=== PATIENT | female | born 1960 | race Caucasian/White ===

== ENCOUNTER 2019-11-28 07:58 | Inpatient (IN) | payer OTHER, SELFPAY ==
[2019-11-28] VITALS (25 sets, daily range): BP systolic 120–173; BP diastolic 53–91; PULSE 68–98; RESP 15–20; TEMP 21.1–37.3; O2SAT 96–100; BMI 48.0
--- NOTE | 2019-11-28 08:22 | ECG_ITS ---
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 Measurements Intervals [place] Rate: 75 P: 52 VA: 196 QRS: -2 QRSD: 97 T: 64 QT: 382 QTc: 429 Interpretive Statements SINUS RHYTHM NONSPECIFIC T-WAVE ABNORMALITY No previous ECG available for comparison Electronically Signed On 11-28-2019 13:07:06 CDT by Avery Patel M.D. [id number]
--- NOTE | 2019-11-28 08:24 | W.ED.EXTPRO ---
Documented by User: JACK Galarza 11/28/19 11:24 HPI - Extremity Problem General: Chief complaint: Extremity Problem,Nontraumatic Stated complaint: l arm numbness/tightness Time Seen by Provider: 11/28/19 08:13 Source: patient Mode of arrival: ambulatory Limitations: no limitations History of Present Illness: HPI Narrative: Patient comes in today for complaints of discomfort with numbness and tingling to the left arm. Patient reports that it feels swollen. Patient does have a some neck problems which she was adjusted last week by her chiropractor. Patient takes no routine medications. Patient states that she thinks she might have hypoglycemia but other than that denies diabetes or hypertension. Patient appears well. Patient appears in no acute distress. 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 Physical Exam Const: COMMON NORMALS: no acute distress, patient oriented x3 and alert GENERAL APPEARANCE: cooperative HENMT: COMMON NORMALS: normocephalic, TM's normal bilaterally and Normal external nose present HEAD & SCALP: normal to inspection and normocephalic NOSE: Normal external nose present TYMPANIC MEMBRANE: TM's normal bilaterally MOUTH: Normal oral and palatal mucosa present THROAT: posterior oropharynx normal Eye: GENERAL EYE: appearance normal, both eyes and all related structures Neck/C-Spine: COMMON NORMALS: full ROM and no meningeal signs Lymph: LYMPHATIC: no lymphadenopathy noted Chest: COMMONS NORMALS: normal inspection of the chest Resp: COMMON NORMALS: normal respiratory effort EFFORT & INSPECTION: Yes able to speak in complete sentences Cardio: COMMON NORMALS: regular rate and regular rhythm RATE: regular rate RHYTHM: regular rhythm GI: COMMON NORMALS: non-tender RECTAL EXAM: normal sphincter tone and heme positive stool : COMMON NORMALS: Yes no CVA tenderness BLADDER/KIDNEY EXAM: Yes no CVA tenderness Back/Pelvis: COMMON NORMALS: no CVA tenderness and thoracic and lumbar spine normal to inspection Extremity: COMMON NORMALS: normal to inspection Neuro: COMMON NORMALS: patient oriented x3 and moves all extremities SENSORIUM/ORIENTATION: Yes alert MENINGEAL SIGNS: Yes no meningeal signs SPEECH: speech normal GAIT: Yes Normal gait present SENSORY EXAM: Yes extremities MOTOR EXAM: 5/5 motor strength present throughout Psych: COMMON NORMALS: mental status grossly normal and cooperative Skin: COMMON NORMALS: no rashes or lesions noted GENERAL SKIN EXAM: no rashes or lesions noted Course ED course: 854, lab notified that Hemoglobin is 6.1, Hematocrit is 23.8. wjw 1100. Reviewed exam with Dr. Merritt regarding patient's low red blood cell count and positive Hemoccult. Suspicious for GI bleed however CT scan was negative for anything but a large hiatal hernia and some nonspecific cyst on the kidney and liver. He recommended patient be admitted for transfusion of blood cells and further evaluation and treatment. Dr. Merritt will evaluate patient and arrange admission. Vital Signs: Vital signs: Vital Signs Temperature 98.1 F 11/29/19 13:06 Pulse Rate 70 11/29/19 13:06 Respiratory Rate 18 11/29/19 13:06 Blood Pressure 145/78 11/29/19 13:06 Pulse Oximetry 100 11/29/19 13:06 MDM - Extremity (Nontraumatic) MDM Narrative: Medical decision making narrative: Patient came in today for some complaints of numbness to the left extremity. Patient appeared well. Patient was gone with minimal discomfort. However raising arm above the head did seem to aggravate the numbness. Exam noted abdomen soft nontender, respirations even lungs are clear to auscultation. Movement of the arm range of motion was normal. Tenderness was noted in the neck. Vital signs were normal. Differential diagnosis include but not limited to facet arthropathy, anemia, ACS. Laboratory values were significant for anemia at 6.1 hemoglobin. Patient had a positive Hemoccult with black stool. CT scan was positive for large hiatal hernia, and a incidental cyst or nodule to the liver and multiple cyst on the kidneys. Reviewed exam with Dr. Merritt who recommended patient be admitted for further evaluation of GI bleed and anemia. Reviewed this with patient who agreed to plan. Lab Data: Labs: Lab Results 11/28/19 11/28/19 11/28/19 Range/Units 08:30 08:30 08:30 WBC 6.2 (4.0-10.0) 10^3/ uL RBC 3.02 L (4.1-5.3) 10^6/u L Hgb 6.1 L* (11.5-15.3) g/dL Hct 23.8 L (37.0-47.0) % MCV 78.8 L (81-99) fL MCH 20.2 L (28.0-34.0) pg MCHC 25.6 L (30.0-36.0) g/dL RDW 16.7 H (12.1-15.1) % Plt Count 334 (130-400) 10^3/c mm MPV 9.6 (7.4-10.4) fL Neut % (Auto) 72.1 % Lymph % (Auto) 18.7 % [place] % (Auto) 6.1 % Eos % (Auto) 1.0 % Baso % (Auto) 1.3 % Reticulocyte % (Au to) % Neut # (Auto) 4.5 (1.8-7.7) 10^3/u L Lymph # (Auto) 1.2 (0.8-4.8) 10^3/u L [place] # (Auto) 0.4 (0.2-0.9) 10^3/u L Eos # (Auto) 0.1 (0.0-0.8) 10^3/u L Baso # (Auto) 0.1 (0.0-0.1) 10^3/u L Nucleated RBC % (a uto) 0 % Nucleated RBCs # 0.0 /100WBC D-Dimer 0.29 (0-0.59) ug/mIFE U Sodium 139 (136-145) mmol/L Potassium 4.3 (3.5-5.1) mmol/L Chloride 104 (98-107) mmol/L Carbon Dioxide 26 (22-29) mmol/L Anion Gap 13.3 (5-19) BUN 16 (6-20) mg/dL Creatinine 0.7 (0.5-0.9) mg/dL GFR Calculation 85.9 L (90-130) mL/min Glucose 103 (65-115) mg/dL Calculated Osmolal ity 285 (285-295) mOsm/k g Calcium 9.0 (8.5-10.5) mg/dL Ionized Calcium Me as (1.1-1.4) mmol/L Magnesium 2.2 (1.7-2.3) mg/dL Iron (37-145) ug/dL TIBC mcg/dl % Saturation (20-50) % Unsat Iron Binding (112-347) ug/dL Total Bilirubin 0.2 (0.15-1.2) mg/dL AST 16 (0-32) U/L ALT 10 (0-33) U/L Alkaline Phosphata se 75 (35-105) IU/L Troponin T Baselin e (0-10) ng/L Total Protein 6.3 L (6.6-8.7) g/dL Albumin 4.3 (3.5-5.2) g/dL Globulin 2.0 (1.3-4.6) g/dL Vitamin B12 (232-1245) pg/mL Folate (4.8-37.3) ng/mL TSH 1.50 (0.27-4.20) uIU/ mL Blood Type Rho(D) Type Antibody Screen Crossmatch 11/28/19 11/28/19 11/28/19 Range/Units 08:30 08:30 08:30 WBC (4.0-10.0) 10^3/ uL RBC (4.1-5.3) 10^6/u L Hgb (11.5-15.3) g/dL Hct (37.0-47.0) % MCV (81-99) fL MCH (28.0-34.0) pg MCHC (30.0-36.0) g/dL RDW (12.1-15.1) % Plt Count (130-400) 10^3/c mm MPV (7.4-10.4) fL Neut % (Auto) % Lymph % (Auto) % [place] % (Auto) % Eos % (Auto) % Baso % (Auto) % Reticulocyte % (Au to) 2.7200 % Neut # (Auto) (1.8-7.7) 10^3/u L Lymph # (Auto) (0.8-4.8) 10^3/u L [place] # (Auto) (0.2-0.9) 10^3/u L Eos # (Auto) (0.0-0.8) 10^3/u L Baso # (Auto) (0.0-0.1) 10^3/u L Nucleated RBC % (a uto) % Nucleated RBCs # /100WBC D-Dimer (0-0.59) ug/mIFE U Sodium (136-145) mmol/L Potassium (3.5-5.1) mmol/L Chloride (98-107) mmol/L Carbon Dioxide (22-29) mmol/L Anion Gap (5-19) BUN (6-20) mg/dL Creatinine (0.5-0.9) mg/dL GFR Calculation (90-130) mL/min Glucose (65-115) mg/dL Calculated Osmolal ity (285-295) mOsm/k g Calcium (8.5-10.5) mg/dL Ionized Calcium Me as (1.1-1.4) mmol/L Magnesium (1.7-2.3) mg/dL Iron 12 L (37-145) ug/dL TIBC 449 mcg/dl % Saturation 2.6 L (20-50) % Unsat Iron Binding 437 H (112-347) ug/dL Total Bilirubin (0.15-1.2) mg/dL AST (0-32) U/L ALT (0-33) U/L Alkaline Phosphata se (35-105) IU/L Troponin T Baselin e 8 (0-10) ng/L Total Protein (6.6-8.7) g/dL Albumin (3.5-5.2) g/dL Globulin (1.3-4.6) g/dL Vitamin B12 (232-1245) pg/mL Folate (4.8-37.3) ng/mL TSH (0.27-4.20) uIU/ mL Blood Type Rho(D) Type Antibody Screen Crossmatch 11/28/19 11/28/19 11/28/19 Range/Units 08:30 08:30 09:40 WBC (4.0-10.0) 10^3/ uL RBC (4.1-5.3) 10^6/u L Hgb (11.5-15.3) g/dL Hct (37.0-47.0) % MCV (81-99) fL MCH (28.0-34.0) pg MCHC (30.0-36.0) g/dL RDW (12.1-15.1) % Plt Count (130-400) 10^3/c mm MPV (7.4-10.4) fL Neut % (Auto) % Lymph % (Auto) % [place] % (Auto) % Eos % (Auto) % Baso % (Auto) % Reticulocyte % (Au to) % Neut # (Auto) (1.8-7.7) 10^3/u L Lymph # (Auto) (0.8-4.8) 10^3/u L [place] # (Auto) (0.2-0.9) 10^3/u L Eos # (Auto) (0.0-0.8) 10^3/u L Baso # (Auto) (0.0-0.1) 10^3/u L Nucleated RBC % (a uto) % Nucleated RBCs # /100WBC D-Dimer (0-0.59) ug/mIFE U Sodium (136-145) mmol/L Potassium (3.5-5.1) mmol/L Chloride (98-107) mmol/L Carbon Dioxide (22-29) mmol/L Anion Gap (5-19) BUN (6-20) mg/dL Creatinine (0.5-0.9) mg/dL GFR Calculation (90-130) mL/min Glucose (65-115) mg/dL Calculated Osmolal ity (285-295) mOsm/k g Calcium (8.5-10.5) mg/dL Ionized Calcium Me as 1.1 (1.1-1.4) mmol/L Magnesium (1.7-2.3) mg/dL Iron (37-145) ug/dL TIBC mcg/dl % Saturation (20-50) % Unsat Iron Binding (112-347) ug/dL Total Bilirubin (0.15-1.2) mg/dL AST (0-32) U/L ALT (0-33) U/L Alkaline Phosphata se (35-105) IU/L Troponin T Baselin e (0-10) ng/L Total Protein (6.6-8.7) g/dL Albumin (3.5-5.2) g/dL Globulin (1.3-4.6) g/dL Vitamin B12 324 (232-1245) pg/mL Folate 10.8 (4.8-37.3) ng/mL TSH (0.27-4.20) uIU/ mL Blood Type Rho(D) Type Antibody Screen Crossmatch 11/28/19 Range/Units 09:50 WBC (4.0-10.0) 10^3/ uL RBC (4.1-5.3) 10^6/u L Hgb (11.5-15.3) g/dL Hct (37.0-47.0) % MCV (81-99) fL MCH (28.0-34.0) pg MCHC (30.0-36.0) g/dL RDW (12.1-15.1) % Plt Count (130-400) 10^3/c mm MPV (7.4-10.4) fL Neut % (Auto) % Lymph % (Auto) % [place] % (Auto) % Eos % (Auto) % Baso % (Auto) % Reticulocyte % (Au to) % Neut # (Auto) (1.8-7.7) 10^3/u L Lymph # (Auto) (0.8-4.8) 10^3/u L [place] # (Auto) (0.2-0.9) 10^3/u L Eos # (Auto) (0.0-0.8) 10^3/u L Baso # (Auto) (0.0-0.1) 10^3/u L Nucleated RBC % (a uto) % Nucleated RBCs # /100WBC D-Dimer (0-0.59) ug/mIFE U Sodium (136-145) mmol/L Potassium (3.5-5.1) mmol/L Chloride (98-107) mmol/L Carbon Dioxide (22-29) mmol/L Anion Gap (5-19) BUN (6-20) mg/dL Creatinine (0.5-0.9) mg/dL GFR Calculation (90-130) mL/min Glucose (65-115) mg/dL Calculated Osmolal ity (285-295) mOsm/k g Calcium (8.5-10.5) mg/dL Ionized Calcium Me as (1.1-1.4) mmol/L Magnesium (1.7-2.3) mg/dL Iron (37-145) ug/dL TIBC mcg/dl % Saturation (20-50) % Unsat Iron Binding (112-347) ug/dL Total Bilirubin (0.15-1.2) mg/dL AST (0-32) U/L ALT (0-33) U/L Alkaline Phosphata se (35-105) IU/L Troponin T Baselin e (0-10) ng/L Total Protein (6.6-8.7) g/dL Albumin (3.5-5.2) g/dL Globulin (1.3-4.6) g/dL Vitamin B12 (232-1245) pg/mL Folate (4.8-37.3) ng/mL TSH (0.27-4.20) uIU/ mL Blood Type A Positive Rho(D) Type Positive Antibody Screen Negative Crossmatch See Detail EKG Data^: EKG 1: Attestation: I personally reviewed and interpreted this EKG as follows: (0835, sinus rhythm, no ectopy, no ST elevation, rate 75 bpm regular.) Discharge Plan Discharge Admit Provider: Glenda Crandall Clinical Impression: GI (gastrointestinal bleed) Condition: Stable Discharge Orders: Discharge Order (Routine); Ordered 11/29/19 Ordered By: Cleve Neely Discharge Diet: Regular Discharge Activity: Resume usual activity Discharge Date/Time: 11/28/19 19:08 Coding Level of Care Code ED Rn Research for Chg Fwd Exam Comprehensive Documented by User: Fabrice Merritt DO 12/01/19 06:34 HPI - Extremity Problem General: Chief complaint: Extremity Problem,Nontraumatic Stated complaint: l arm numbness/tightness Time Seen by Provider: 11/28/19 08:13 [facility] ED PFSH: Medical History (Updated 11/30/19 @ 00:00 by ) Back pain Family History (Updated 11/28/19 @ 15:17 by Cleve Neely MD) Other Cancer Social History (Updated 11/28/19 @ 15:17 by Cleve Neely MD) Smoking and tobacco status: never smoked Alcohol intake: never Substance/Drug Use: never Lives independently: No Household members: spouse Housing: House Current occupational status: employed Current occupation: Works at a [employer] Vital Signs: Vital signs: Vital Signs Temperature 98.1 F 11/29/19 13:06 Pulse Rate 70 11/29/19 13:06 Respiratory Rate 18 11/29/19 13:06 Blood Pressure 145/78 11/29/19 13:06 Pulse Oximetry 100 11/29/19 13:06 MDM - Extremity (Nontraumatic) MDM Narrative: Medical decision making narrative: Patient seen and reviewed with Adan Cary. Agree with his assessment note discussed Dr. Crandall patient will be admitted for GI bleed. Lab Data: Labs: Lab Results 11/28/19 11/28/19 11/28/19 Range/Units 08:30 08:30 08:30 WBC 6.2 (4.0-10.0) 10^3/ uL RBC 3.02 L (4.1-5.3) 10^6/u L Hgb 6.1 L* (11.5-15.3) g/dL Hct 23.8 L (37.0-47.0) % MCV 78.8 L (81-99) fL MCH 20.2 L (28.0-34.0) pg MCHC 25.6 L (30.0-36.0) g/dL RDW 16.7 H (12.1-15.1) % Plt Count 334 (130-400) 10^3/c mm MPV 9.6 (7.4-10.4) fL Neut % (Auto) 72.1 % Lymph % (Auto) 18.7 % [place] % (Auto) 6.1 % Eos % (Auto) 1.0 % Baso % (Auto) 1.3 % Reticulocyte % (Au to) % Neut # (Auto) 4.5 (1.8-7.7) 10^3/u L Lymph # (Auto) 1.2 (0.8-4.8) 10^3/u L [place] # (Auto) 0.4 (0.2-0.9) 10^3/u L Eos # (Auto) 0.1 (0.0-0.8) 10^3/u L Baso # (Auto) 0.1 (0.0-0.1) 10^3/u L Nucleated RBC % (a uto) 0 % Nucleated RBCs # 0.0 /100WBC D-Dimer 0.29 (0-0.59) ug/mIFE U Sodium 139 (136-145) mmol/L Potassium 4.3 (3.5-5.1) mmol/L Chloride 104 (98-107) mmol/L Carbon Dioxide 26 (22-29) mmol/L Anion Gap 13.3 (5-19) BUN 16 (6-20) mg/dL Creatinine 0.7 (0.5-0.9) mg/dL GFR Calculation 85.9 L (90-130) mL/min Glucose 103 (65-115) mg/dL Calculated Osmolal ity 285 (285-295) mOsm/k g Calcium 9.0 (8.5-10.5) mg/dL Ionized Calcium Me as (1.1-1.4) mmol/L Magnesium 2.2 (1.7-2.3) mg/dL Iron (37-145) ug/dL TIBC mcg/dl % Saturation (20-50) % Unsat Iron Binding (112-347) ug/dL Total Bilirubin 0.2 (0.15-1.2) mg/dL AST 16 (0-32) U/L ALT 10 (0-33) U/L Alkaline Phosphata se 75 (35-105) IU/L Troponin T Baselin e (0-10) ng/L Total Protein 6.3 L (6.6-8.7) g/dL Albumin 4.3 (3.5-5.2) g/dL Globulin 2.0 (1.3-4.6) g/dL Vitamin B12 (232-1245) pg/mL Folate (4.8-37.3) ng/mL TSH 1.50 (0.27-4.20) uIU/ mL Blood Type Rho(D) Type Antibody Screen Crossmatch 11/28/19 11/28/19 11/28/19 Range/Units 08:30 08:30 08:30 WBC (4.0-10.0) 10^3/ uL RBC (4.1-5.3) 10^6/u L Hgb (11.5-15.3) g/dL Hct (37.0-47.0) % MCV (81-99) fL MCH (28.0-34.0) pg MCHC (30.0-36.0) g/dL RDW (12.1-15.1) % Plt Count (130-400) 10^3/c mm MPV (7.4-10.4) fL Neut % (Auto) % Lymph % (Auto) % [place] % (Auto) % Eos % (Auto) % Baso % (Auto) % Reticulocyte % (Au to) 2.7200 % Neut # (Auto) (1.8-7.7) 10^3/u L Lymph # (Auto) (0.8-4.8) 10^3/u L [place] # (Auto) (0.2-0.9) 10^3/u L Eos # (Auto) (0.0-0.8) 10^3/u L Baso # (Auto) (0.0-0.1) 10^3/u L Nucleated RBC % (a uto) % Nucleated RBCs # /100WBC D-Dimer (0-0.59) ug/mIFE U Sodium (136-145) mmol/L Potassium (3.5-5.1) mmol/L Chloride (98-107) mmol/L Carbon Dioxide (22-29) mmol/L Anion Gap (5-19) BUN (6-20) mg/dL Creatinine (0.5-0.9) mg/dL GFR Calculation (90-130) mL/min Glucose (65-115) mg/dL Calculated Osmolal ity (285-295) mOsm/k g Calcium (8.5-10.5) mg/dL Ionized Calcium Me as (1.1-1.4) mmol/L Magnesium (1.7-2.3) mg/dL Iron 12 L (37-145) ug/dL TIBC 449 mcg/dl % Saturation 2.6 L (20-50) % Unsat Iron Binding 437 H (112-347) ug/dL Total Bilirubin (0.15-1.2) mg/dL AST (0-32) U/L ALT (0-33) U/L Alkaline Phosphata se (35-105) IU/L Troponin T Baselin e 8 (0-10) ng/L Total Protein (6.6-8.7) g/dL Albumin (3.5-5.2) g/dL Globulin (1.3-4.6) g/dL Vitamin B12 (232-1245) pg/mL Folate (4.8-37.3) ng/mL TSH (0.27-4.20) uIU/ mL Blood Type Rho(D) Type Antibody Screen Crossmatch 11/28/19 11/28/19 11/28/19 Range/Units 08:30 08:30 09:40 WBC (4.0-10.0) 10^3/ uL RBC (4.1-5.3) 10^6/u L Hgb (11.5-15.3) g/dL Hct (37.0-47.0) % MCV (81-99) fL MCH (28.0-34.0) pg MCHC (30.0-36.0) g/dL RDW (12.1-15.1) % Plt Count (130-400) 10^3/c mm MPV (7.4-10.4) fL Neut % (Auto) % Lymph % (Auto) % [place] % (Auto) % Eos % (Auto) % Baso % (Auto) % Reticulocyte % (Au to) % Neut # (Auto) (1.8-7.7) 10^3/u L Lymph # (Auto) (0.8-4.8) 10^3/u L [place] # (Auto) (0.2-0.9) 10^3/u L Eos # (Auto) (0.0-0.8) 10^3/u L Baso # (Auto) (0.0-0.1) 10^3/u L Nucleated RBC % (a uto) % Nucleated RBCs # /100WBC D-Dimer (0-0.59) ug/mIFE U Sodium (136-145) mmol/L Potassium (3.5-5.1) mmol/L Chloride (98-107) mmol/L Carbon Dioxide (22-29) mmol/L Anion Gap (5-19) BUN (6-20) mg/dL Creatinine (0.5-0.9) mg/dL GFR Calculation (90-130) mL/min Glucose (65-115) mg/dL Calculated Osmolal ity (285-295) mOsm/k g Calcium (8.5-10.5) mg/dL Ionized Calcium Me as 1.1 (1.1-1.4) mmol/L Magnesium (1.7-2.3) mg/dL Iron (37-145) ug/dL TIBC mcg/dl % Saturation (20-50) % Unsat Iron Binding (112-347) ug/dL Total Bilirubin (0.15-1.2) mg/dL AST (0-32) U/L ALT (0-33) U/L Alkaline Phosphata se (35-105) IU/L Troponin T Baselin e (0-10) ng/L Total Protein (6.6-8.7) g/dL Albumin (3.5-5.2) g/dL Globulin (1.3-4.6) g/dL Vitamin B12 324 (232-1245) pg/mL Folate 10.8 (4.8-37.3) ng/mL TSH (0.27-4.20) uIU/ mL Blood Type Rho(D) Type Antibody Screen Crossmatch 11/28/19 Range/Units 09:50 WBC (4.0-10.0) 10^3/ uL RBC (4.1-5.3) 10^6/u L Hgb (11.5-15.3) g/dL Hct (37.0-47.0) % MCV (81-99) fL MCH (28.0-34.0) pg MCHC (30.0-36.0) g/dL RDW (12.1-15.1) % Plt Count (130-400) 10^3/c mm MPV (7.4-10.4) fL Neut % (Auto) % Lymph % (Auto) % [place] % (Auto) % Eos % (Auto) % Baso % (Auto) % Reticulocyte % (Au to) % Neut # (Auto) (1.8-7.7) 10^3/u L Lymph # (Auto) (0.8-4.8) 10^3/u L [place] # (Auto) (0.2-0.9) 10^3/u L Eos # (Auto) (0.0-0.8) 10^3/u L Baso # (Auto) (0.0-0.1) 10^3/u L Nucleated RBC % (a uto) % Nucleated RBCs # /100WBC D-Dimer (0-0.59) ug/mIFE U Sodium (136-145) mmol/L Potassium (3.5-5.1) mmol/L Chloride (98-107) mmol/L Carbon Dioxide (22-29) mmol/L Anion Gap (5-19) BUN (6-20) mg/dL Creatinine (0.5-0.9) mg/dL GFR Calculation (90-130) mL/min Glucose (65-115) mg/dL Calculated Osmolal ity (285-295) mOsm/k g Calcium (8.5-10.5) mg/dL Ionized Calcium Me as (1.1-1.4) mmol/L Magnesium (1.7-2.3) mg/dL Iron (37-145) ug/dL TIBC mcg/dl % Saturation (20-50) % Unsat Iron Binding (112-347) ug/dL Total Bilirubin (0.15-1.2) mg/dL AST (0-32) U/L ALT (0-33) U/L Alkaline Phosphata se (35-105) IU/L Troponin T Baselin e (0-10) ng/L Total Protein (6.6-8.7) g/dL Albumin (3.5-5.2) g/dL Globulin (1.3-4.6) g/dL Vitamin B12 (232-1245) pg/mL Folate (4.8-37.3) ng/mL TSH (0.27-4.20) uIU/ mL Blood Type A Positive Rho(D) Type Positive Antibody Screen Negative Crossmatch See Detail Discharge Plan Discharge Admit Provider: Glenda Crandall Clinical Impression: GI (gastrointestinal bleed) Condition: Stable Discharge Orders: Discharge Order (Routine); Ordered 11/29/19 Ordered By: Cleve Neely Discharge Diet: Regular Discharge Activity: Resume usual activity Discharge Date/Time: 11/28/19 19:08 Coding Level of Care Code ED Rn Research for Yangg Fwd Exam Comprehensive
--- NOTE | 2019-11-28 08:34 | PC.NURSE ---
Pt woke up this morning with her right arm being numb and tingling. Pt has been having intermittent chest pressure radiating down bilateral arms for the last week. It gets worse with exertion, and better with rest.
[2019-11-28 08:47] LABS: Basophils # 0.1 10^3/uL (0.0-0.1); Basophils % 1.3 %; Eosinophils # 0.1 10^3/uL (0.0-0.8); Hematocrit 23.8 % (37.0-47.0); Lymphocytes # 1.2 10^3/uL (0.8-4.8); Lymphocytes % 18.7 %; Mean Corpuscular HGB Conc 25.6 g/dL (30.0-36.0); Mean Corpuscular Hemoglobin 20.2 pg (28.0-34.0); Mean Corpuscular Volume 78.8 fL (81-99); Mean Platelet Volume 9.6 fL (7.4-10.4); Monocytes # 0.4 10^3/uL (0.2-0.9); Monocytes % 6.1 %; Neutrophils # 4.5 10^3/uL (1.8-7.7); Neutrophils % 72.1 %; Nucleated Red Blood Cells % 0 %; Platelet Count 334 10^3/cmm (130-400); Red Blood Count 3.02 10^6/uL (4.1-5.3); Red Cell Distribution Width 16.7 % (12.1-15.1); White Blood Count 6.2 10^3/uL (4.0-10.0)
[2019-11-28 08:51] LABS: Hemoglobin 6.1 g/dL (11.5-15.3)
[2019-11-28 09:03] LABS: D Dimer 0.29 ug/mIFEU (0-0.59)
[2019-11-28 09:09] LABS: Troponin(5th) Baseline 8 ng/L (0-10)
[2019-11-28 09:14] LABS: Alanine Aminotransferase 10 U/L (0-33); Albumin Level 4.3 g/dL (3.5-5.2); Alkaline Phosphatase 75 IU/L (35-105); Anion Gap 13.3 (5-19); Aspartate Amino Transferase 16 U/L (0-32); Blood Urea Nitrogen 16 mg/dL (6-20); Carbon Dioxide 26 mmol/L (22-29); Chloride 104 mmol/L (98-107); Glomerular Filtration Rate 85.9 mL/min (90-130); Glucose 103 mg/dL (65-115); Magnesium 2.2 mg/dL (1.7-2.3); Osmolality Calculated 285 mOsm/kg (285-295); Potassium 4.3 mmol/L (3.5-5.1); Sodium 139 mmol/L (136-145); Total Bilirubin 0.2 mg/dL (0.15-1.2); Total Protein 6.3 g/dL (6.6-8.7)
--- NOTE | 2019-11-28 09:18 | CT_ITS ---
WS: [id number] CT abdomen pelvis w con* [id number] REASON FOR EXAM: gi bleed IV CONTRAST ADMINISTERED: Omnipaque 300, 95 mL TOTAL EXAM DLP: All CT scans at [facility] use at least one of these dose optimization techniques: automat ed exposure control; mA and/or kV adjustment per patient size (includes targeted exams where dose is matched to clinical indication); or iterative reconstruction. FINDINGS: A hiatal hernia is seen. Measures 8.61 cm. Along the periphery of the liver at the junction of the left and right lobes there is a hypodense mas s extends to the surface but no perforation is seen the mass is solid measures 2.32 cm. The stomach did not show any ulcerated areas. No masses are seen. The pancreas head, body, tail were normal. The spleen showed granulomas otherwise normal. Right and left adrenal glands were normal. The right and left kidneys were normal. A stone is seen in the pelvis on the right side measured 0.1 mm. The left kidney shows a small cyst measures 0.34 cm. The ureters were normal bilaterally The right colon shows fecal debris but no masses are seen the appendix is visualized and was normal. The small bowel showed no obstructive changes or masses. The transverse colon show normal appearance The descending colon show no definite masses, diverticulosis or diverticulitis. In the pelvis the uterus is small there is no adnexal masses seen. The bladder was normal. The anorectal area did not show any masses. The pelvis bony structures were normal. The lumbar spine showed normal appearance. CT/CT abdomen pelvis w con* [id number] IMPRESSION: Large hiatal hernia. A mass is seen along the junction of the left and right liver appears to be yaima id but smooth in outline. No enhancement is seen. The left kidneys shows a benign cysts The right kidney shows a calcified density in the pelvis.
[2019-11-28] MEDS: pantoprazole 40 mg SDV IVP ×2 (09:59→15:25)
[2019-11-28] MEDS: iohexol 300 mg/mL 100 mL Btl IV (10:25)
--- NOTE | 2019-11-28 14:25 | P.HP_ITS ---
Providers/Chief Complaint Chief Complaint: l arm numbness/tightness History of Present Illness Ailyn Sagastume is a 59 year old female no segment past medical history who does not follow-up with her primary care physician came in in the ER today because of numbness of left arm when she woke up. The numbness went away as the day progressed. But she was worried so she called the EMS and came to the ER. By the time she had arrived in the ER her numbness had gone away. Numbness is all associated with mild weakness but no pain. She denied of having any chest pain, nausea, vomiting, pain rating to her neck. She states she has been having back pain for last 2 weeks for which she went to chiropractor last week and got some adjustments done. She states she has been using a new pillow recently. She denies of having any dizziness, shortness of breath, fall, loss of consciousness. In the ER her blood work showed hemoglobin of 6.1 which is new. She denies of having any bleeding, easy bruising, vaginal bleed, dysuria, melena, hematemesis, hematuria, history of anemia, history of blood transfusion, any recent surgery, any history of cancer, any history of colonoscopy or endoscopy. She does give history of lung cancer in her ankles in the past. She denies of smoking or alcohol use. She does give history of using at least 2 Aleve a day for around 7 to 10 days still last week for back pain. She complains of occasional heartburn. Hospital service was requested because of anemia. Review of Systems Const: Denies: fever(s), chills, body aches, change in appetite, malaise, night sweats, diaphoresis, change in sleep pattern, daytime sleepiness or snoring Eyes: Denies: change in vision, blurry vision, photophobia, eye discomfort or eye discharge ENMT: Denies: throat pain, enlarged tonsils, hoarseness, mouth pain, oral sores, dry mouth, tinnitus, nasal congestion or post nasal drip Card: Denies: chest pain, palpitations, irregular heart rhythm, edema, swelling of feet/ankles, lightheadedness, syncope, pre-syncope, dyspnea on exertion, orthopnea, leg pain with exertion or acrocyanosis Resp: Denies: dyspnea, productive cough, non-productive cough, wheezing, stridor, pain on inspiration, change in phlegm color, hemoptysis or chest congestion GI: Denies: abdominal pain, nausea, vomiting, hematemesis, coffee ground emesis, dysphagia, heartburn, diarrhea, constipation, bloating, GI cramping, change in bowel habits, pain on defecation, hematochezia or melena : Denies: flank pain, dysuria, urinary frequency, urinary urgency, urinary hesitancy, nocturia or hematuria Musc: Denies: neck pain, back pain, extremity pain, joint pain, joint swelling, joint redness, joint stiffness or limited range of motion Neuro: Reports: numbness in extremities; Denies: headache(s), weakness in extremities, sensory changes, lack of coordination, difficulty walking, frequent falls, dizziness, vertigo, confusion, Slurred speech present, difficulty communicating thoughts or seizure-like activity Psych: Denies: anxiety, depression, mood swings, panic attacks, hopelessness or irritability Endo: Denies: polyuria, polydipsia, tired all the time, cold intolerance, excessive sweating, flushing or heat intolerance Jose J/Lymph: Denies: easy bruising or easy bleeding All/Imm: Denies: tongue swelling, facial swelling or acute wheezing Medications/Allergies Home Medications Medication Instructions Recorded Confirmed Last Taken Type No Known Home Medications 11/28/19 11/28/19 Unknown History Allergies Allergy/AdvReac Type Severity Reaction Status Date / Time No Known Allergies Allergy Verified 11/28/19 09:42 PFSH Acute PFSH: Medical History (Updated 11/28/19 @ 15:16 by Cleve Neely MD) Back pain Family History (Updated 11/28/19 @ 15:17 by Cleve Neely MD) Other Cancer Social History (Updated 11/28/19 @ 15:17 by Cleve Neely MD) Smoking and tobacco status: never smoked Alcohol intake: never Substance/Drug Use: never Lives independently: No Household members: spouse Housing: House Current occupational status: employed 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 Vitals/I&O/Wt Last Vital Signs Temp 98.3 F 11/28/19 13:08 Pulse 74 11/28/19 13:08 Resp 17 11/28/19 13:08 BP 128/68 11/28/19 13:08 Pulse Ox 100 11/28/19 13:08 11/27/19 11/28/19 11/28/19 22:59 06:59 14:59 Intake Total 0 / 0 Balance 0 / 0 Weight last 48 hrs Weight 127.006 kg Physical Exam Narrative: EXAM NARRATIVE: General: No acute distress, AO x3, morbidly obese, pale HEENT: PERRLA, pupils bilaterally equal and reactive Chest: Normal vesicular breath sounds, no added sounds, equal good air entry bilaterally CVS: S1-S2 regular, no murmurs, no tachycardia, no gallops, no rubs Abdomen: Soft, nontender, no organomegaly, bowel sounds present Neuro: No focal deficits, no facial deformity, AO x3, power 5/5 in all limbs Data : 11/28/19 08:30 11/28/19 08:30 Other Labs: CT abd/Pelvis TOTAL EXAM DLP: All CT scans at [facility] use at least one of these dose optimization techniques: automated exposure control; mA and/or kV adjustment per patient size (includes targeted exams where dose is matched to clinical indication); or iterative reconstruction. FINDINGS: A hiatal hernia is seen. Measures 8.61 cm. Along the periphery of the liver at the junction of the left and right lobes there is a hypodense mass extends to the surface but no perforation is seen the mass is solid measures 2.32 cm. The stomach did not show any ulcerated areas. No masses are seen. The pancreas head, body, tail were normal. The spleen showed granulomas otherwise normal. Right and left adrenal glands were normal. The right and left kidneys were normal. A stone is seen in the pelvis on the right side measured 0.1 mm. The left kidney shows a small cyst measures 0.34 cm. The ureters were normal bilaterally The right colon shows fecal debris but no masses are seen the appendix is visualized and was normal. The small bowel showed no obstructive changes or masses. The transverse colon show normal appearance The descending colon show no definite masses, diverticulosis or diverticulitis. In the pelvis the uterus is small there is no adnexal masses seen. The bladder was normal. The anorectal area did not show any masses. The pelvis bony structures were normal. The lumbar spine showed normal appearance. CT/CT abdomen pelvis w con* [id number] IMPRESSION: Large hiatal hernia. A mass is seen along the junction of the left and right liver appears to be solid but smooth in outline. No enhancement is seen. The left kidneys shows a benign cysts The right kidney shows a calcified density in the pelvis. A&P Assessment and plan (1) GI (gastrointestinal bleed): Status: Acute Qualifiers: GI bleed type/associated pathology: melena Qualified Code(s): K92.1 - Melena (2) Anemia: Status: Acute (3) Numbness and tingling in left arm: Status: Acute Additional A&P Information 59-year-old female with no significant past medical history presented to the hospital because of numbness in left arm found to have acute anemia so was admitted. Numbness and tingling in left arm: Patient does not have any neurological deficit right now or during the episode of numbness and tingling in the arm. Most likely musculoskeletal. Patient is given history of using new pillows at night. Will check CT head, cervical and thoracic spine. Anemia: Most likely slow GI bleed. Patient has never had a colonoscopy or endoscopy in the past. Check iron panel, vitamin B12, folic acid level, lactate level, reticulocyte count. Transfuse 2 units of PRBC. Protonix 40 mg IV every 12 hourly. As patient is not having any active GI bleed we will start patient on regular diet. Stool for occult blood. Zofran as needed. General health: Check TSH, lipid panel, HbA1c, CEA. Full code. Regular diet. SCDs for DVT prophylaxis. Attestations Medical Necessity Statement*: More than 2 midnights for acute anemia, possible GI bleed Time Spent in Patient Care: Greater than 35 minutes Coding Level of Care Code Acute Adult Manager for [facility] Diagnoses GI (gastrointestinal bleed) K92.1 GI bleed type/associated pathology: melena Anemia D64.9 Numbness and tingling in left arm R20.0; R20.2
[2019-11-28] MEDS: sodium chloride 0.9% 1,000 ML 75 ML IV (15:25)
[2019-11-28 15:29] LABS: Iron 12 ug/dL (37-145); Percent Saturation 2.6 % (20-50); Total Iron Binding Capacity 449 mcg/dl; Unsaturated Iron Binding 437 ug/dL (112-347)
--- NOTE | 2019-11-28 15:29 | CT_ITS ---
WS: [id number] CT cervical spin wo con* [id number] REASON FOR EXAM: left arm numbness IV CONTRAST ADMINISTERED: No contrast TOTAL EXAM DLP: 738.[address] scans at [facility] use at least one of these dose optimization techniques: automat ed exposure control; mA and/or kV adjustment per patient size (includes targeted exams where dose is matched to clinical indication); or iterative reconstruction. FINDINGS: The craniocervical junction anatomy was normal. C1-C2 normal anatomical findings. C2-C3: Normal vertebral alignment. Exiting foramina normal. No disc bulge or herniation. No spinal st enosis. C3-C4: Normal vertebral alignment. Exiting foramina normal. No disc bulge or herniation. No spinal st enosis. C4-C5: Normal vertebral alignment. Exiting foramina normal. No disc bulge or herniation. No spinal st enosis. C5-C6: Normal vertebral alignment. Exiting foramina normal. No disc bulge or herniation. No spinal st enosis. C6-C7: Normal vertebral alignment. Exiting foramina normal. No disc bulge or herniation. No spinal st enosis. C7-T1: Mild articular facet degenerate changes. On the right side exiting foramina normal. No spinal stenosis no disc bulge or herniation. CT/CT cervical spin wo con* [id number] IMPRESSION: C7-T1 mild articular facet degenerate changes on the right C7-T1 The remaining cervical spine appear to be normal.
--- NOTE | 2019-11-28 15:29 | CT_ITS ---
WS: [id number] CT head wo con* [id number] REASON FOR EXAM: numbness IV CONTRAST ADMINISTERED: None. TOTAL EXAM DLP: 751.[address] scans at [facility] use at least one of these dose optimization techniques: automat ed exposure control; mA and/or kV adjustment per patient size (includes targeted exams where dose is matched to clinical indication); or iterative reconstruction. FINDINGS: The parotid glands appear to be normal there is no masses seen in the parotids. The 7th and 8th nerve complexes were normal no destructive changes of the middle or inner ear. The short air cells were normal. The remaining calvarium appear to be normal. Paranasal sinuses were normal. The brain was image multiecho 3 mm sections no evidence of hemorrhage, mass effect or infarction. The ventricles were normal no paraventricular abnormalities are seen. The fractures of the brain did not show any masses or destructive changes. The mena and posterior fossa were normal. The hippocampus areas show no abnormal signal. The lateral view showed normal appearance of the ventricles. CT/CT head wo con* [id number] IMPRESSION: Normal CT of the brain.
--- NOTE | 2019-11-28 15:29 | CT_ITS ---
WS: [id number] CT thoracic spin wo con* [id number] REASON FOR EXAM: left arm numbness IV CONTRAST ADMINISTERED: None. TOTAL EXAM DLP: 1942.[address] scans at [facility] use at least one of these dose optimization techniques: automat ed exposure control; mA and/or kV adjustment per patient size (includes targeted exams where dose is matched to clinical indication); or iterative reconstruction. FINDINGS: At the C6-7 level on the right side not well seen on the CT of the cervical spine there erickson eared to be a deformity suggesting a fracture through the neural arch are on the right. The left side was normal. C7-T1 show normal appearance no fractures are noted. The remaining thoracic spine was evaluated from T1 through T12. There is no fractures seen in the preston tebral bodies. Exiting foramina is appear to be normal. There was no disc bulge or herniation. No spi nal stenosis. CT/CT thoracic spin wo con* [id number] IMPRESSION: Along the neural arch area on the right side at C6-7 there appears to be a line ar fracture through the neural arch with degenerate changes along the articular facets at that location. This was not well seen along the CT of the cervical s pine.
[2019-11-28 15:39] LABS: Folate Level 10.8 ng/mL (4.8-37.3)
[2019-11-28 15:40] LABS: Vitamin B12 324 pg/mL (232-1245)
--- NOTE | 2019-11-28 17:04 | P.CONIM_ITS ---
Providers/Reason For Consult Consulting Physican/Specialty*: Bubba Avila MD Reason for Consult*: Anemia Requesting Physcian: Dr. Merritt Attending Physician: Cleve Neely MD History of Present Illness History of Present Illness Chief Complaint: My left arm numbness History of present illness: Ailyn Sagastume is a pleasant 59 year old female, presents to the emergency department with worsening numbness of the left upper extremity that has been under work-up per ED and hospitalist service, patient was found to have incidental finding of low hemoglobin around 6 g and was tested for occult positive stool, the patient denies any hematemesis or hematochezia or any other potential bleeding per orifices, patient undergone a CT scan of the abdomen and pelvis that showed: FINDINGS: A hiatal hernia is seen. Measures 8.61 cm. Along the periphery of the liver at the junction of the left and right lobes there is a hypodense mass extends to the surface but no perforation is seen the mass is solid measures 2.32 cm. The stomach did not show any ulcerated areas. No masses are seen. The pancreas head, body, tail were normal. The spleen showed granulomas otherwise normal. Right and left adrenal glands were normal. The right and left kidneys were normal. A stone is seen in the pelvis on the right side measured 0.1 mm. The left kidney shows a small cyst measures 0.34 cm. The ureters were normal bilaterally The right colon shows fecal debris but no masses are seen the appendix is visualized and was normal. The small bowel showed no obstructive changes or masses. The transverse colon show normal appearance The descending colon show no definite masses, diverticulosis or diverticulitis. In the pelvis the uterus is small there is no adnexal masses seen. The bladder was normal. The anorectal area did not show any masses. The pelvis bony structures were normal. The lumbar spine showed normal appearance. CT/CT abdomen pelvis w con* [id number] IMPRESSION: Large hiatal hernia. A mass is seen along the junction of the left and right liver appears to be solid but smooth in outline. No enhancement is seen. The left kidneys shows a benign cysts The right kidney shows a calcified density in the pelvis. General surgery was consulted for potential evaluation to undergo potential endoscopies Review of Systems General: Reports: 10 or more systems reviewed and unremarkable except in HPI and below Meds/Allergies Home Medications and Allergies Home Medications Medication Instructions Recorded Confirmed Last Taken Type No Known Home Medications 11/28/19 11/28/19 Unknown History Allergies Allergy/AdvReac Type Severity Reaction Status Date / Time No Known Allergies Allergy Verified 11/28/19 17:22 Current Medications Current Medications Generic Name Dose Route Start Last Admin Trade Name Muq PRN Reason Stop Dose Admin Sodium Chloride 1,000 mls @ 75 mls/hr 11/28/19 15:02 11/28/19 15:25 Sodium Chloride 0.9% IV 75 mls/hr .[id number] CHAGO Administration Pantoprazole Sodium 40 mg 11/28/19 15:02 11/28/19 15:25 Protonix IVP 40 mg Q12H CHAGO Administration PFSH Acute PFSH: Medical History (Updated 11/28/19 @ 15:16 by Cleve Neely MD) Back pain Family History (Updated 11/28/19 @ 15:17 by Cleve Neely MD) Other Cancer Social History (Updated 11/28/19 @ 15:17 by Cleve Neely MD) Smoking and tobacco status: never smoked Alcohol intake: never Substance/Drug Use: never Lives independently: No Household members: spouse Housing: House Current occupational status: employed 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 Vitals/I&O/Wt Last Vital Signs Temp 99.1 F 11/28/19 16:40 Pulse 73 11/28/19 16:40 Resp 20 H 11/28/19 16:40 BP 144/74 11/28/19 16:40 Pulse Ox 100 11/28/19 16:40 11/28/19 11/28/19 11/28/19 06:59 14:59 22:59 Intake Total 0 / 0 350 / 350 Balance 0 / 0 350 / 350 Weight last 48 hrs Weight 280 lb Physical Exam Narrative: EXAM NARRATIVE: Patient is conscious alert oriented X3 BMI 48 Head and neck examination PERRLA no masses no cervical lymphadenopathy no jaundice Cardiac examination audible S1-S2 no murmurs no gallops no arrhythmias Chest is clear bilateral,abscence of Rhonchi or wheezes,no surgical emphysema Abdomen nontender nondistended soft no organomegaly guarding or rigidity/no signs of peritonitis Morbidly obese Extremities no cyanosis no clubbing no edema A&P Assessment and plan (1) Anemia: Plan of care; After thorough history and physical examination and reviewing the chart and images with my personal interpretation, plan to perform a diagnostic esophagogastroduodenoscopy and diagnostic colonoscopy with possible biopsy and possible polypectomy, in the GI lab in an outpatient setting. I do not see an acute indication to perform these procedures while the patient is having symptomatic left upper extremity weakness and numbness as I do believe that has to be sorted out first before any invasive procedures to be done. At this point will defer to hospitalist service for appropriate blood transfusion Will have the patient follow-up as an outpatient for EGD and colonoscopy unless something acutely changes over during her hospitalization Will Continue coordinating with Dr. Camacho Thank you for consulting general surgery to participate taking care . Status: Acute Coding Level of Care Code Acute Grounds/Maintenance Specialist for [facility] Fwd Diagnoses Anemia D64.9
[2019-11-28] MEDS: ALPRAZolam 0.25 mg Tablet PO (20:30)
[2019-11-28] MEDS: amlodipine 5 mg Tablet PO (20:30)
[2019-11-28 20:35] LABS: Bacteria Urine 1+; Bilirubin Urine Neg (NEGATIVE); Blood Urine Neg (Negative); Glucose Urine UA Norm (Normal); Ketones Urine Negative (Negative); Leukocyte Esterase Urine Negative (Negative); Mucus Urine 1+; Nitrate Urine Negative (Negative); Protein Urine Neg (Negative); Specific Gravity, Urine 1.015 (1.005-1.030); Squamous Epithelial Cell Urine 0-4 (0-5); Urine Appearance Clear (CLEAR); Urine Color Yellow (Yellow); Urobilinogen Urine Neg (Negative); WBC Urine 0-4 /hpf (0-5); pH Urine 5 (5-7)
[2019-11-28 20:36] LABS: Add Urine Culture? No
[2019-11-28 21:49] LABS: Ionized Calcium 1.1 mmol/L (1.1-1.4)
[2019-11-28 22:36] LABS: Thyroid Stimulating Hormone 1.69 uIU/mL (0.27-4.20)
[2019-11-29 04:00] VITALS: BP 126/75; PULSE 75; RESP 19; TEMP 36.8; O2SAT 96
[2019-11-29] MEDS: sodium chloride 0.9% 1,000 ML 75 ML IV (04:20)
[2019-11-29 05:10] LABS: Basophils # 0.1 10^3/uL (0.0-0.1); Basophils % 1.1 %; Eosinophils # 0.1 10^3/uL (0.0-0.8); Hematocrit 28.6 % (37.0-47.0); Hemoglobin 7.9 g/dL (11.5-15.3); Lymphocytes # 1.1 10^3/uL (0.8-4.8); Lymphocytes % 18.3 %; Mean Corpuscular HGB Conc 27.6 g/dL (30.0-36.0); Mean Corpuscular Hemoglobin 22.4 pg (28.0-34.0); Mean Corpuscular Volume 81.3 fL (81-99); Mean Platelet Volume 9.4 fL (7.4-10.4); Monocytes # 0.5 10^3/uL (0.2-0.9); Monocytes % 8.3 %; Neutrophils # 4.3 10^3/uL (1.8-7.7); Nucleated Red Blood Cells % 0 %; Platelet Count 272 10^3/cmm (130-400); Red Blood Count 3.52 10^6/uL (4.1-5.3); Red Cell Distribution Width 16.9 % (12.1-15.1); White Blood Count 6.1 10^3/uL (4.0-10.0)
[2019-11-29 05:28] LABS: Alanine Aminotransferase 8 U/L (0-33); Albumin Level 3.6 g/dL (3.5-5.2); Alkaline Phosphatase 68 IU/L (35-105); Aspartate Amino Transferase 12 U/L (0-32); Blood Urea Nitrogen 12 mg/dL (6-20); Calcium 8.7 mg/dL (8.5-10.5); Carbon Dioxide 26 mmol/L (22-29); Chloride 108 mmol/L (98-107); Globulin 2.2 g/dL (1.3-4.6); Glomerular Filtration Rate 85.9 mL/min (90-130); Glucose 96 mg/dL (65-115); Osmolality Calculated 290 mOsm/kg (285-295); Sodium 142 mmol/L (136-145); Total Bilirubin 0.4 mg/dL (0.15-1.2); Total Protein 5.8 g/dL (6.6-8.7)
[2019-11-29 05:30] LABS: Chol HDL Ratio 5.41 mg/dL (0.0-4.40); Cholesterol 173 mg/dL (0-200); HDL Cholesterol 32 mg/dL (60-100); LDL Cholesterol Calculated 119 mg/dL (50-129); Triglycerides 110 mg/dL (0-150); VLDL Cholestrol Calculation 22 mg/dL (0-30)
[2019-11-29 05:56] LABS: Estmated Average Glucose 100; Hemoglobin A1C 5.1 % (4.0-6.0)
[2019-11-29 07:47] VITALS: BP 145/78; PULSE 70; RESP 18; TEMP 36.7; O2SAT 100
[2019-11-29] MEDS: pantoprazole 40 mg SDV IVP (09:30)
[2019-11-29] MEDS: iron sucrose 200 MG in sodium chloride 0.9% (100 ml) 100 ML 220 MG IV (09:48)
--- NOTE | 2019-11-29 11:03 | PC.CHAP ---
Pastoral Care Encounter/Spiritual Assessment Type of Contact [] Declined cardboard cutter visit [] Patient/Family/Request visit [] Outpatient visit [] Follow-up visit [] Physician referral [] Code/Alert [X] Routine visit [] Staff referral [] Actively dying [] Patient sleeping [] Family support [] [] Out of room [] Palliative care [] [] Receiving care in room [] Pre-surgical visit [] Trauma [] Long length of stay [] ICU visit [] Other: Relational/Emotional Strength [X] Patient feels connected with others/family/visitors/staff [] Distress [] Loneliness/isolation [] Abandonment Spirituality of Patient [X] Person of Tamica [] Attends Yazidi of their [place] [X] Believes in Prayer [] Reads Bible or Uatsdin materials [] There are Spiritual issues to be addressed Carpet Weaver Interventions [X] Prayer [X] Active listening [X] Non-anxious presence [] Spiritual/emotional support [] Crisis/trauma care [] Spiritual counseling [] Bereavement support [] Provided bereavement packet [] Provided Bible/devotional materials [] Provided toy/stuffed animal, coloring book to patient or family member [] Provided Communion [] Anointing/Ethel [] Salvation [] Completed spiritual assessment [X] Other: see notes below Impact on Illness or Injury [] Angry [] Fearful [] Anxious [] Often cries [] Exhaustion [] Unable to work [] Unable to attend mosque [] Unable to walk/stand [] Unable to read [] Unable to drive [] Unable to eat/drink [] Unable to sleep [] Unable to be with family [] Patient intubated [X] Other: Summary: Concern of a stroke brought her to medical care. Medical issue is not stroke, but [facility] team found another issue, incidentally, for which the patient is thankful. She has family support. I provided advocacy: (beeper going off; needed ice, toothpaste, and toothbrush). Time spent with patient 15 mins
--- NOTE | 2019-11-29 11:04 | P.DS_ITS ---
Discharge Providers Date of Admission: 11/28/19 15:01 Date of Discharge: November 29, 2019 Attending Provider at Admission: Glenda Crandall MD Attending Provider at Discharge: Cleve Neely MD Consults: Surgery: Dr. Avila Diagnoses at Discharge Discharge Diagnosis (1) Anemia: Status: Acute Reason for Visit Reason for Visit: l arm numbness/tightness Hospital Course Discharge Summary: Ailyn Sagastume is a 59 year old female no segment past medi kari history who does not follow-up with her primary care physician came in in the ER today because of numbness of left arm when she woke up. The numbness went away as the day progressed. But she was worried so she called the EMS and came to the ER. By the time she had arrived in the ER her numbness had gone away. Numbness is all associated with mild weakness but no pain. She denied of having any chest pain, nausea, vomiting, pain rating to her neck. She states she has been having back pain for last 2 weeks for which she went to chiropractor last week and got some adjustments done. She states she has been using a new pillow recently. She denies of having any dizziness, shortness of breath, fall, loss of consciousness. In the ER her blood work showed hemoglobin of 6.1 which is new. She denies of having any bleeding, easy bruising, vaginal bleed, dysuria, melena, hematemesis, hematuria, history of anemia, history of blood transfusion, any recent surgery, any history of cancer, any history of colonoscopy or endoscopy. She does give history of lung cancer in her ankles in the past. She denies of smoking or alcohol use. She does give history of using at least 2 Aleve a day for around 7 to 10 days still last week for back pain. She complains of occasional heartburn. Stool for occult blood was tested and was negative. She was transfused 1 unit of PRBC and her hemoglobin came up appropriately to 7.9. During hospitalization lipid panel, HbA1c, TSH were checked and were all within normal limits. Her iron panel showed severe iron deficiency anemia for which she has been started on oral iron supplementation. During hospitalization her blood pressures were found to be in a higher side so she is been started on amlodipine 5 mg. Patient is advised to follow-up with her primary care provider regularly at least once every 6 months. Patient is also advised to follow-up with surgery for possible EGD and colonoscopy as she has never had any. Physical Exam Narrative: EXAM NARRATIVE: General: No acute distress, AO x3, morbidly obese, pale HEENT: PERRLA, pupils bilaterally equal and reactive Chest: Normal vesicular breath sounds, no added sounds, equal good air entry bilaterally CVS: S1-S2 regular, no murmurs, no tachycardia, no gallops, no rubs Abdomen: Soft, nontender, no organomegaly, bowel sounds present Neuro: No focal deficits, no facial deformity, AO x3, power 5/5 in all limbs Discharge Data Data Completed and Pending: Completed Studies During Hospitalization Category Date Time Status CT abdomen pelvis w con* [id number] Urge nt Cat Scan 11/28/19 09:[address] cervical spin wo con* [id number] Rout ine Cat Scan 11/28/19 15:[address] head wo con* 7 0450 Routine Cat Scan 11/28/19 15:[address] thoracic spin wo con* [id number] Rout ine Cat Scan 11/28/19 15:29 Completed Labs from last 24 hours 11/29/19 11/29/19 11/29/19 04:52 04:52 04:52 WBC RBC Hgb Hct MCV MCH MCHC RDW Plt Count MPV Neut % (Auto) Lymph % (Auto) Guthrie % (Auto) Eos % (Auto) Baso % (Auto) Reticulocyte % (Au to) Neut # (Auto) Lymph # (Auto) Guthrie # (Auto) Eos # (Auto) Baso # (Auto) Nucleated RBC % (a uto) Nucleated RBCs # Sodium 142 Potassium 4.0 Chloride 108 H Carbon Dioxide 26 Anion Gap 12.0 BUN 12 Creatinine 0.7 GFR Calculation 85.9 L Glucose 96 Estimat Average Gl ucose 100 Hemoglobin A1c 5.1 Calculated Osmolal ity 290 Lactic Acid Calcium 8.7 Ionized Calcium Me as Iron TIBC % Saturation Unsat Iron Binding Total Bilirubin 0.4 AST 12 ALT 8 Alkaline Phosphata se 68 Total Protein 5.8 L Albumin 3.6 Globulin 2.2 Triglycerides 110 Cholesterol 173 LDL Cholesterol, C alc 119 Total VLDL Cholest davi 22 HDL Cholesterol 32 L Cholesterol/HDL Ra gaby 5.41 H Vitamin B12 Folate TSH Urine Color Urine Appearance Urine pH Ur Specific Gravit y Urine Protein Urine Glucose (UA) Urine Ketones Urine Blood Urine Nitrate Urine Bilirubin Urine Urobilinogen Ur Leukocyte Yudi ase Urine RBC Urine WBC Ur Squamous Epith Cells Urine Bacteria Urine Mucus Blood Type Rho(D) Type Antibody Screen Crossmatch 11/29/19 11/28/19 11/28/19 04:52 21:38 21:38 WBC 6.1 RBC 3.52 L Hgb 7.9 L Hct 28.6 L MCV 81.3 MCH 22.4 L D MCHC 27.6 L D RDW 16.9 H Plt Count 272 MPV 9.4 Neut % (Auto) 70.0 Lymph % (Auto) 18.3 Guthrie % (Auto) 8.3 Eos % (Auto) 2.0 Baso % (Auto) 1.1 Reticulocyte % (Au to) Neut # (Auto) 4.3 Lymph # (Auto) 1.1 Guthrie # (Auto) 0.5 Eos # (Auto) 0.1 Baso # (Auto) 0.1 Nucleated RBC % (a uto) 0 Nucleated RBCs # 0.0 Sodium Potassium Chloride Carbon Dioxide Anion Gap BUN Creatinine GFR Calculation Glucose Estimat Average Gl ucose Hemoglobin A1c Calculated Osmolal ity Lactic Acid 1.0 Calcium Ionized Calcium Me as Iron TIBC % Saturation Unsat Iron Binding Total Bilirubin AST ALT Alkaline Phosphata se Total Protein Albumin Globulin Triglycerides Cholesterol LDL Cholesterol, C alc Total VLDL Cholest davi HDL Cholesterol Cholesterol/HDL Ra gaby Vitamin B12 Folate TSH 1.69 Urine Color Urine Appearance Urine pH Ur Specific Gravit y Urine Protein Urine Glucose (UA) Urine Ketones Urine Blood Urine Nitrate Urine Bilirubin Urine Urobilinogen Ur Leukocyte Yudi ase Urine RBC Urine WBC Ur Squamous Epith Cells Urine Bacteria Urine Mucus Blood Type Rho(D) Type Antibody Screen Crossmatch 11/28/19 11/28/19 11/28/19 19:20 09:50 09:40 WBC RBC Hgb Hct MCV MCH MCHC RDW Plt Count MPV Neut % (Auto) Lymph % (Auto) Guthrie % (Auto) Eos % (Auto) Baso % (Auto) Reticulocyte % (Au to) Neut # (Auto) Lymph # (Auto) Guthrie # (Auto) Eos # (Auto) Baso # (Auto) Nucleated RBC % (a uto) Nucleated RBCs # Sodium Potassium Chloride Carbon Dioxide Anion Gap BUN Creatinine GFR Calculation Glucose Estimat Average Gl ucose Hemoglobin A1c Calculated Osmolal ity Lactic Acid Calcium Ionized Calcium Me as 1.1 Iron TIBC % Saturation Unsat Iron Binding Total Bilirubin AST ALT Alkaline Phosphata se Total Protein Albumin Globulin Triglycerides Cholesterol LDL Cholesterol, C alc Total VLDL Cholest davi HDL Cholesterol Cholesterol/HDL Ra gaby Vitamin B12 Folate TSH Urine Color Yellow Urine Appearance Clear Urine pH 5 Ur Specific Gravit y 1.015 Urine Protein Neg Urine Glucose (UA) Norm Urine Ketones Negative Urine Blood Neg Urine Nitrate Negative Urine Bilirubin Neg Urine Urobilinogen Neg Ur Leukocyte Yudi ase Negative Urine RBC None Urine WBC 0-4 H Ur Squamous Epith Cells 0-4 H Urine Bacteria 1+ H Urine Mucus 1+ Blood Type A Positive Rho(D) Type Positive Antibody Screen Negative Crossmatch See Detail 11/28/19 11/28/19 11/28/19 08:30 08:30 08:30 WBC RBC Hgb Hct MCV MCH MCHC RDW Plt Count MPV Neut % (Auto) Lymph % (Auto) Guthrie % (Auto) Eos % (Auto) Baso % (Auto) Reticulocyte % (Au to) 2.7200 Neut # (Auto) Lymph # (Auto) Guthrie # (Auto) Eos # (Auto) Baso # (Auto) Nucleated RBC % (a uto) Nucleated RBCs # Sodium Potassium Chloride Carbon Dioxide Anion Gap BUN Creatinine GFR Calculation Glucose Estimat Average Gl ucose Hemoglobin A1c Calculated Osmolal ity Lactic Acid Calcium Ionized Calcium Me as Iron TIBC % Saturation Unsat Iron Binding Total Bilirubin AST ALT Alkaline Phosphata se Total Protein Albumin Globulin Triglycerides Cholesterol LDL Cholesterol, C alc Total VLDL Cholest davi HDL Cholesterol Cholesterol/HDL Ra gaby Vitamin B12 324 Folate 10.8 TSH Urine Color Urine Appearance Urine pH Ur Specific Gravit y Urine Protein Urine Glucose (UA) Urine Ketones Urine Blood Urine Nitrate Urine Bilirubin Urine Urobilinogen Ur Leukocyte Yudi ase Urine RBC Urine WBC Ur Squamous Epith Cells Urine Bacteria Urine Mucus Blood Type Rho(D) Type Antibody Screen Crossmatch 11/28/19 08:30 WBC RBC Hgb Hct MCV MCH MCHC RDW Plt Count MPV Neut % (Auto) Lymph % (Auto) Guthrie % (Auto) Eos % (Auto) Baso % (Auto) Reticulocyte % (Au to) Neut # (Auto) Lymph # (Auto) Guthrie # (Auto) Eos # (Auto) Baso # (Auto) Nucleated RBC % (a uto) Nucleated RBCs # Sodium Potassium Chloride Carbon Dioxide Anion Gap BUN Creatinine GFR Calculation Glucose Estimat Average Gl ucose Hemoglobin A1c Calculated Osmolal ity Lactic Acid Calcium Ionized Calcium Me as Iron 12 L TIBC 449 % Saturation 2.6 L Unsat Iron Binding 437 H Total Bilirubin AST ALT Alkaline Phosphata se Total Protein Albumin Globulin Triglycerides Cholesterol LDL Cholesterol, C alc Total VLDL Cholest davi HDL Cholesterol Cholesterol/HDL Ra gaby Vitamin B12 Folate TSH Urine Color Urine Appearance Urine pH Ur Specific Gravit y Urine Protein Urine Glucose (UA) Urine Ketones Urine Blood Urine Nitrate Urine Bilirubin Urine Urobilinogen Ur Leukocyte Yudi ase Urine RBC Urine WBC Ur Squamous Epith Cells Urine Bacteria Urine Mucus Blood Type Rho(D) Type Antibody Screen Crossmatch Vitals: Last Vital Signs Temp 98.1 F 11/29/19 07:47 Pulse 70 11/29/19 07:47 Resp 18 11/29/19 07:47 BP 145/78 11/29/19 07:47 Pulse Ox 100 11/29/19 07:47 Discharge Plan Discharge Patient Disposition: Home, Self-Care Condition: Stable Prescriptions: New ferrous gluconate 324 mg (37.5 mg iron) tablet 324 mg PO BID Qty: 60 RF: 0 multivitamin Tablet 1 tab PO DAILY Qty: 30 RF: 0 Protonix 40 mg tablet,delayed release (DR/EC) 40 mg PO DAILY 28 Days Qty: 30 RF: 0 amlodipine 5 mg tablet 5 mg PO DAILY Qty: 30 RF: 0 Discharge Orders: Discharge Order (Routine); Ordered 11/29/19 Ordered By: Cleve Neely Referrals: Bubba Avila MD [Physician] - (Return to surgery office in 2 to 3 weeks as follow-up schedule EGD and colonoscopy) Discharge Diet: Regular Discharge Activity: Resume usual activity Discharge Attestations Time Spent in Discharge Care*: greater than 30 min Specific Discharge Activities: Specific discharge activities: educating patient, discussing with pcp/other providers, discussing with case management social worker/social workers/dc planners, documenting/other paperwork and evaluating patient/reviewing data Status at Discharge: Cognitive status at discharge: cognitively intact , Behavioral status at discharge: cooperative , Functional status at discharge: independent ambulation Overall status at discharge: patient is back to baseline Quality Metrics Clinical Quality Measures During this hospital stay, did patient experience: None 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
[2019-11-29 11:20] VITALS: BP 145/78; PULSE 70; RESP 18; TEMP 36.7; O2SAT 100
[2019-11-29 13:06] VITALS: BP 145/78; PULSE 70; RESP 18; TEMP 36.7; O2SAT 100
--- NOTE | 2019-11-29 13:32 | PC.PT ---
PT note; requested fit this patient with cervical collar, due to fracture visualized at C6-7 Fit collar to patient's satisfaction, instructed in use and care, also instructed in cervical precautions, and patient had no further questions; patient denies pain at this time, and to follow-up with Dr. Elizabeth; patient demonstrates safe independent transfers and ambulation at this time, no further visits planned, no other needs identified.
== END 2019-11-29 13:33 | disposition home or self-care (01) | DRG 379 ==
LOC: ER 11:59 → MEDSURG 15:01
PROVIDERS: Nurse Practitioner Family; Admitting Provider Student in an Organized Health Care Education/Training Program; Emergency Provider Family Medicine; Visit Provider Student in an Organized Health Care Education/Training Program
DX: K92.1 Melena (principal); D64.9 Anemia, unspecified; M54.9 Dorsalgia, unspecified; R20.0 Anesthesia of skin; K44.9 Diaphragmatic hernia without obstruction or gangrene; M50.33 Other cervical disc degeneration, cervicothoracic region
CPT/HCPCS: 12345; 36415; 36430; 36600; 70450; 72125; 72128; 74177; 80053; 80061; 81001; 82274; 82330; 82607; 82746; 83036; 83540; 83550; 83605; 83735; 84443; 84484; 85025; 85045; 85378; 86850; 86900; 86920; 93005; 94664; 96375; 97760; 99284; C9113; J1756; J7030; L0174; P9016; Q9967

== ENCOUNTER → 2019-12-01 16:43 | Outpatient (BNVA) | payer OTHER, SELFPAY | PROVIDERS: Visit Provider Nurse Practitioner Family | DX: D64.9 Anemia, unspecified (principal) | CPT/HCPCS: 85025 ==

== ENCOUNTER → 2020-01-05 16:08 | Outpatient (BNVA) | payer OTHER, SELFPAY | PROVIDERS: Visit Provider Nurse Practitioner Family | DX: D64.9 Anemia, unspecified (principal); I10 Essential (primary) hypertension; K21.9 Gastro-esophageal reflux disease without esophagitis | CPT/HCPCS: 80053; 80061; 82728; 83550; 84443; 85025 ==

== ENCOUNTER 2020-01-16 09:08 | Outpatient (CLI) | payer OTHER, SELFPAY ==
--- NOTE | 2020-01-16 09:30 | CT_ITS ---
WS: [id number] CT CERVICAL SPINE TECHNIQUE: Noncontrast CT of the cervical spine with coronal and sagittal reformatted images. CLINICAL INFORMATION: C6-C7 deformity COMPARISON: CT November 28, 2019 DLP: 2074.[address] scans at [facility] use at least one of these dose optimization techniques: automat ed exposure control; mA and/or kV adjustment per patient size (includes targeted exams where dose is matched to clinical indication); or iterative reconstruction. FINDINGS: Straightening of the normal cervical lordosis. Normal C1-C2 articulation. No high-grade central canal stenosis. Normal prevertebral soft tissues. Previously described tiny possible hairline fracture at right C7 involving the right facet lamina junction. No evidence of healing. This may represent a prom inent nutrient canal. C2-C3: Normal. C3-C4: Normal. C4-C5: Mild osteophytic ridging. Spinal canal and foramen are patent. C5-C6: No significant disc bulging. Spinal canal and foramen are patent. C6-C7: Mild osteophytic ridging. Mild left and no significant right foraminal narrowing. Spinal canal is patent. C7-T1: No significant disc bulging. Spinal canal and foramen are patent. 7 mm low-attenuation right thyroid nodule CT/CT cervical spin wo con* 27642 IMPRESSION: 1. Previously described right posterior element C7 hairline fracture is unchan ged and may represent a prominent nutrient canal. No evidence of healing. 2. No other significant changes from previous.
== END 2020-01-16 09:09 | disposition home or self-care (01) ==
LOC: RADWPI 09:11
PROVIDERS: Visit Provider Licensed Practical Nurse
DX: M43.8X2 Other specified deforming dorsopathies, cervical region (principal); S12.600A Unspecified displaced fracture of seventh cervical vertebra, initial encounter for closed fracture; X58.XXXA Exposure to other specified factors, initial encounter
CPT/HCPCS: 72125

== ENCOUNTER → 2020-01-29 11:31 | Outpatient (BNVA) | payer OTHER, SELFPAY | PROVIDERS: Visit Provider Licensed Practical Nurse | DX: S12.9XXA Fracture of neck, unspecified, initial encounter (principal); X58.XXXA Exposure to other specified factors, initial encounter | CPT/HCPCS: 99213 ==

== ENCOUNTER → 2020-02-23 08:49 | Outpatient (BNVA) | payer OTHER, SELFPAY | PROVIDERS: Visit Provider Internal Medicine | DX: Z11.59 Encounter for screening for other viral diseases (principal) | CPT/HCPCS: 87635 ==

== ENCOUNTER 2020-02-25 09:31 | Day surgery (SDC) | payer OTHER, SELFPAY ==
[2020-02-23 10:49] VITALS: BMI 48.0
[2020-02-25 10:15] VITALS: BP 173/91; PULSE 63; RESP 18; TEMP 36.6; O2SAT 100
[2020-02-25] MEDS: sodium chloride 0.9% 1,000 ML 30 ML IV (10:20)
--- NOTE | 2020-02-25 11:09 | W.PM.OPSFHP ---
Same Day Surgery H&P Indication for Procedure/HPI DATE OF PROCEDURE: February 25, 2020 CHIEF COMPLAINT/INDICATIONFOR SURGICAL PROCEDURE: History of anemia PREOP DIAGNOSIS: Anemia requiring blood transfusion PLANNED PROCEDRUE: Operation Date: 02/25/20 11:00 Proposed Procedures p EGD 11793 K21.9(Not Applicable) - Bubba Avila MD s Colonoscopy 33132 D64.9(Not Applicable) - Bubba Avila MD This is a pleasant 59 years old female patient was recently admitted to the hospital because of left arm numbness and had gone into different testing and supposed to be following up with Dr. Elizabeth for further evaluation for her cervical spine, she was supposed to be having cervical collar on but she is not comfortable wearing it, and she continues to have issues with her left arm. Patient comes today as she was found to be anemic without evidence of bleeding per orifices, yet she was encouraged to have a conversation about potential EGD and colonoscopy as part of the work up. Interim history 02/25/2020 Patient comes today for her planned EGD and colonoscopy and she did undergo conservative measures per neurosurgery service ROS All systems have been reviewed negative except as per the above or per problem list. Medications/Allergies* Allergies/Adverse Reactions Allergy/AdvReac Type Severity Reaction Status Date / Time No Known Allergies Allergy Verified 02/25/20 11:10 Current Medications: Generic Name Dose Route Start Last Admin Trade Name Freq PRN Reason Stop Dose Admin Sodium Chloride 1,000 mls @ 30 mls/hr 02/25/20 10:00 02/25/20 10:20 Sodium Chloride 0.9% IV 30 mls/hr .Q24H CHAGO Administration Pertinent History/Comorbid Conditions* Medical History (Updated 02/02/20 @ 16:20 by Nelly Akhtar APRN) Cervical spine fracture Essential hypertension Fracture of neural arch Gastroesophageal reflux disease Kidney cysts Liver mass Surgical History (Updated 12/04/19 @ 08:49 by Nelly Akhtar APRN) History of History of cholecystectomy Family History (Updated 12/04/19 @ 08:50 by Nelly Akhtar APRN) Cancer Social History Smoking and tobacco status: never smoked Alcohol intake: never Household members: family Marital status: Single Current occupational status: employed 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
--- NOTE | 2020-02-25 11:17 | P.ANESASSM_ITS ---
Pre-Anesthetic Assessment Pre-Anesthetic Assessment: Height/Weight: Height 1.63 m Weight 127.006 kg Temp Pulse Resp BP Pulse Ox 97.8 F 63 18 173/91 100 02/25/20 10:15 02/25/20 10:15 02/25/20 10:15 02/25/20 10:15 02/25/20 10:15 Preop Diagnosis: Anemia requiring blood transfusion Proposed Procedure: Operation Date: 02/25/20 11:00 Proposed Procedures p EGD 89064 K21.9(Not Applicable) - Bubba Avila MD s Colonoscopy 95142 D64.9(Not Applicable) - Bubba Avila MD Familial anesthetic complications: None Was Beta Vi taken within 24 hours: N/A Last intake: Intake Last Liquid Date 02/24/20 Last Liquid Time 23:30 Last Solid Date 02/23/20 Last Solid Time 19:00 Social: Social History: No alcohol and No tobacco Exam: Pre-Anes Outpt Exam: alert, oriented x 3, clear to auscultation bilaterally and regular rate & rhythm Airway: Cervical ROM: WNL MP: 4 Dentition: Partials (top and bottom) CV/HEM: CV/HEM: Anemia and HTN GI: GI: GERD and Hiatus hernia Neuropsych: Comments: L arm numbness prompted evaluation of cervical spine with qusetionable fracture seen on CT. patient was placed in a c collar for 6 weeks and repeat imaging showed no changes or healing indicating that the abnormality may have been chronically present.. She was cleared by dr. reyes to remove c collar. She is able to demonstrate full ROM of her neck. Anesthetic Plan: ASA status: 2 Anesthesia: MAC Risk of > 500 ml blood loss (7ml/kg in children): No Meds/Allergies Current Medications: Current Medications Generic Name Dose Route Start Last Admin Trade Name Freq PRN Reason Stop Dose Admin Sodium Chloride 1,000 mls @ 30 ml s/hr 02/25/20 10:00 02/25/20 10:20 Sodium Chloride 0.9% IV 30 mls/hr .Q24H CHAGO Administration PFSH Anesthesia PFSH: Medical History Cervical spine fracture Essential hypertension Fracture of neural arch Gastroesophageal reflux disease Kidney cysts Liver mass Surgical History History of History of cholecystectomy Family History Other Cancer Social History Smoking and tobacco status: never smoked Alcohol intake: never Household members: family Marital status: Single Current occupational status: employed 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
--- NOTE | 2020-02-25 11:55 | SUR.OPER ---
clip placed at distal esophagitis bx site
--- NOTE | 2020-02-25 12:10 | SUR.OPER ---
clip placed at ascending colon polyp bx site
[2020-02-25 12:20] VITALS: BP 123/87; PULSE 78; RESP 18; TEMP 36.2; O2SAT 96
--- NOTE | 2020-02-25 12:27 | ANE.PACU2 ---
Inpatient post-anesthesia follow up: Airway intact: Yes Vital signs: Temperature 97.8 F Pulse Rate 63 Respiratory Rate 18 Blood Pressure 173/91 Pulse Oximetry 100 Oxygen Delivery Me thod Room Air Oxygen Flow Rate Fraction of Inspir ed Oxygen Hydration adequate: Yes Nausea and vomiting: No Pain level: 1 Mental status: Baseline
[2020-02-25 12:51] VITALS: BP 129/94; PULSE 60; RESP 18; O2SAT 98
[2020-02-26 05:51] LABS: H. Pylori / CLO Test Negative
== END 2020-02-25 12:55 | disposition home or self-care (01) ==
PROVIDERS: Visit Provider Surgery
PROC: 0DJ08ZZ Inspection of Upper Intestinal Tract, Via Natural or Artificial Opening Endoscopic (ICD-10-PCS; CPT 43235; principal; 2020-02-25 11:00)
PROC: 0DJD8ZZ Inspection of Lower Intestinal Tract, Via Natural or Artificial Opening Endoscopic (ICD-10-PCS; CPT 45378; 2020-02-25 11:00)
DX: K63.5 Polyp of colon (principal); K44.9 Diaphragmatic hernia without obstruction or gangrene; K29.70 Gastritis, unspecified, without bleeding; K21.9 Gastro-esophageal reflux disease without esophagitis; D50.0 Iron deficiency anemia secondary to blood loss (chronic); I10 Essential (primary) hypertension
CPT/HCPCS: 12345; 43239; 45380; 87077; 88305; J2704; J7030

== ENCOUNTER 2020-03-26 12:43 | Outpatient (CLI) | payer OTHER, SELFPAY ==
--- NOTE | 2020-03-26 12:53 | XR_ITS ---
WS: [id number] Right knee, 3 views, 03/26/2020 Clinical Data: right knee injury and pain Comparison: None. Findings: No fractures or dislocations are seen. The joint spaces are normal. The patella is intact. The soft t issues are unremarkable. XR/XR knee RT 3V* [id number] Impression: Negative right knee.
== END 2020-03-26 12:44 | disposition home or self-care (01) ==
LOC: RADWPI 12:46
PROVIDERS: PCP Nurse Practitioner Family; Visit Provider Nurse Practitioner Family
DX: M25.561 Pain in right knee (principal)
CPT/HCPCS: 73562

== ENCOUNTER 2020-03-30 08:36 | Outpatient (CLI) | payer OTHER, SELFPAY ==
--- NOTE | 2020-03-30 09:00 | CT_ITS ---
WS: [id number] CT CERVICAL SPINE HISTORY: Fracture TECHNIQUE: Contiguous 2.5 mm axial imaging performed through the entire cervical spine. Sagittal and coronal reformats also performed. All CT scans at [facility] use at least one of these do se optimization techniques: automated exposure control; mA and/or kV adjustment per patient size (inc ludes targeted exams where dose is matched to clinical indication); or iterative reconstruction. DLP: 1598.07 mGycm COMPARISON: 01/16/2020 Normal cervical alignment. Craniocervical junction is normal. Facet joints are normally aligned. Previously described possible fracture or nutrient foramen in the RIGHT C7 lamina is still evident. A s previously noted this may be a nutrient foramen. There is some increased sclerosis at the site whic h was also present on the prior study. There is been no change in alignment or positioning. C2-C3: Normal. C3-C4: Normal. C4-C5: Normal. C5-C6: Small osteophytes. No stenosis. C6-C7: Small osteophytes with no stenosis. C7-T1: Normal. Lucency through the RIGHT C7 lamina is unchanged. There is some increased sclerosis pr esent. RIGHT thyroid nodule measures [address]/CT cervical spin wo con* [id number] IMPRESSION: 1. Again noted is a lucency through the RIGHT C7 lamina. Incomplete healing of a nondisplaced fracture versus nutrient foramen. No interval roving changer sever al months. 2. No stenosis.
== END 2020-03-30 08:37 | disposition home or self-care (01) ==
LOC: RADWPI 08:40
PROVIDERS: PCP Nurse Practitioner; Visit Provider Licensed Practical Nurse
DX: S12.9XXA Fracture of neck, unspecified, initial encounter (principal); X58.XXXA Exposure to other specified factors, initial encounter
CPT/HCPCS: 72125

== ENCOUNTER 2020-04-08 09:04 | Outpatient (CLI) | payer OTHER, SELFPAY ==
--- NOTE | 2020-04-08 09:30 | MR_ITS ---
WS: [id number] MRI RIGHT KNEE HISTORY: M25.561 Pain in right knee COMPARISON: 03/26/2020 radiographs Anterior cruciate ligament: Intact. Posterior cruciate ligament: Intact. Medial collateral ligament: Intact. Posterior lateral corner structures: Intact. Medial menisci: Intact. Normal signal, size and shape. Lateral meniscus: Intact. Normal signal, size and shape. Extensor mechanism: Distal quadriceps tendon and patellar tendons are intact. Fluid and soft tissue: There is a small joint effusion. There is also small amount of soft tissue pierre ma over the anterior knee. No Morgan's cyst. Osseous and articular structures: Patellofemoral compartment: Moderate narrowing of the joint compartment. Loss of cartilage and subcho ndral cystic changes along the medial and lateral patellar facet. Very slight lateral subluxation of the patella. Medial compartment: Very mild narrowing of the medial compartment with thinning and fissuring of the cartilage. Lateral compartment: Mild narrowing of the lateral compartment with small osteophytes. Focal defect i n the cartilage over the mid tibial plateau. Multilobulated cystic mass posterior to the lateral femoral condyle extends over a length of 3.4 cm x 2.5 cm. Inseparable from the plantaris and lateral head of the gastrocnemius tendons. MR/MR knee RT wo con* [id number] IMPRESSION: 1. Severe chondromalacia patella. 2. Lobulated cystic mass posterior to the lateral femoral condyle highly suspi cious for a ganglion. 3. Focal cartilage defect in the lateral tibial plateau.
== END 2020-04-08 09:05 | disposition home or self-care (01) ==
LOC: RADSHAW 09:07
PROVIDERS: PCP Nurse Practitioner Family; Visit Provider Nurse Practitioner Family
DX: S89.90XA Unspecified injury of unspecified lower leg, initial encounter (principal); X58.XXXA Exposure to other specified factors, initial encounter; M25.461 Effusion, right knee; M22.41 Chondromalacia patellae, right knee
CPT/HCPCS: 73721; 99213

== ENCOUNTER 2020-04-28 06:00 | Outpatient (RCR) | payer OTHER, SELFPAY | END 2020-05-10 23:59 | disposition home or self-care (01) | LOC: TPT 06:00 | PROVIDERS: PCP Nurse Practitioner Family; Referring Provider Orthopaedic Surgery; Visit Provider Orthopaedic Surgery | DX: M17.11 Unilateral primary osteoarthritis, right knee (principal) | CPT/HCPCS: 97110; 97161 ==

== ENCOUNTER 2020-05-11 06:00 | Outpatient (RCR) | payer OTHER, SELFPAY | END 2020-06-10 23:59 | disposition home or self-care (01) | LOC: TPT 06:00 | PROVIDERS: PCP Nurse Practitioner Family; Referring Provider Orthopaedic Surgery; Visit Provider Orthopaedic Surgery | DX: M17.11 Unilateral primary osteoarthritis, right knee (principal) | CPT/HCPCS: 97110 ==

== ENCOUNTER 2020-05-31 14:06 | Outpatient (CLI) | payer OTHER, SELFPAY ==
--- NOTE | 2020-05-31 14:15 | US_ITS ---
WS: [id number] THYROID ULTRASOUND (TI-RADS CRITERIA) History: Nontoxic single thyroid nodule.. Technique: Ultrasound examination of the thyroid and adjacent soft tissues is performed. FINDINGS: Right lobe: 4.4 cm x 1.8 cm x 1.7 cm. Volume: 7.1 cm3. Slightly enlarged thyroid. No increased vascularity. Left lobe: 3.9 cm x 1.2 cm x 1.3 cm. Volume: 3.2 cm3. Normal size and echotexture. No significant or dominant nodules are present. Isthmus: 0.4 cm. Estimated total number of nodules greater than or equal to 1 cm: 1 Number of spongiform nodules greater than or equal to 2 cm not described below (TR1): 0 Number of mixed cystic and solid nodules greater than or equal to 1.5 cm not described below (TR2): 0 NODULE: RIGHT 1 Size: 1.3 x 0.9 x 1.6 cm. Location: Inferior pole Composition: Solid/almost completely solid (2) Echogenicity: Hypoechoic (2) Shape: Not taller than wide (0) Margins: Smooth (0) Echogenic foci: 0 ACR TI-RADS total points: 4 ACR TI-RADS risk category: TR 4 US/US thyroid 02257 Impression: TR4; inferior RIGHT thyroid nodule. Recommendation:Ultrasound follow-up recommended in one, 2, 3 and 5 years for th e RIGHT thyroid nodule. If thyroid nodule(s) change on follow-up examinations the recommendations will be altered as necessary.
== END 2020-05-31 14:07 | disposition home or self-care (01) ==
LOC: RAD 14:08
PROVIDERS: PCP Nurse Practitioner Family; Visit Provider Nurse Practitioner Family
DX: E04.1 Nontoxic single thyroid nodule (principal)
CPT/HCPCS: 76536

== ENCOUNTER 2020-06-07 09:51 | Outpatient (CLI) | payer OTHER, SELFPAY ==
--- NOTE | 2020-06-07 10:15 | CT_ITS ---
WS: [id number] Exam: CT cervical spin wo con* [id number] Date/Time of Exam: 06/07/2020 10:10 AM Reason For Exam: S12.9XXA - Fracture of neck, unspecified, initial encounter DLP: 1616.[address] scans at [facility] use at least one of these dose optimization techniques: automat ed exposure control; mA and/or kV adjustment per patient size (includes targeted exams where dose is matched to clinical indication); or iterative reconstruction. Comparison with the last exam 03/30/2020. Again noted is a small linear lucent defect in the right lamina of C7 unchanged. This is thought to b e sequela from either previous fracture or a nutrient foramina. No other sign of fracture or malalign ment. Disc spaces are preserved. The bony spinal canal is patent. Minimal facet DJD at all levels. Pa raspinal soft tissues are unremarkable. CT/CT cervical spin wo con* [id number] IMPRESSION: 1. Linear lucent defect in the right lamina of C7 unchanged. This may represent an old nondisplaced fracture or nutrient foramina. 2. No other sign of fracture or malalignment. Minimal facet DJD.
== END 2020-06-07 09:52 | disposition home or self-care (01) ==
LOC: RADWPI 09:54
PROVIDERS: PCP Nurse Practitioner Family; Visit Provider Licensed Practical Nurse
DX: S12.9XXA Fracture of neck, unspecified, initial encounter (principal); X58.XXXA Exposure to other specified factors, initial encounter
CPT/HCPCS: 72125

== ENCOUNTER 2020-07-09 08:25 | Emergency (ER) | payer OTHER, SELFPAY ==
[2020-07-09 08:30] VITALS: BP 193/76; PULSE 75; RESP 18; TEMP 36.3; O2SAT 100; BMI 46.3
--- NOTE | 2020-07-09 08:31 | ED_ITS ---
HPI - General Adult General: Chief complaint: General Medical Stated complaint: High BP/vision problems/headache Time Seen by Provider: 07/09/20 08:26 Source: patient and family Mode of arrival: ambulatory Limitations: no limitations History of Present Illness: HPI narrative: Patient is a nice 59-year-old female who presents to ED today for an evaluation of hypertension. Patient tells me she was diagnosed with hypertension several months ago and placed on 5 mg amlodipine daily however she never started this medication thinking she did not need it. Patient tells me approximately 2 days ago she woke up and noticed that her vision was different. She describes it as feeling cross eyed . She denies any visual loss or loss of peripheral moran. She states vision was abn ormal for approximately 3 hours and subsided. She states today while at work similar vision changes occurred and was accompanied by a right temporal headache. She states she checked her blood pressure at home and it was 170s/100s. She did take her amlodipine afterwards and states it improved BP to 140s/80s. Patient states vision is currently back to normal. She is not complaining of slurred speech, facial drooping, numbness/tingling/weakness to her extremities. No trouble with ambulation. She is not having any chest pain, shortness of breath, difficulty breathing. Denies exercise intolerance. Onset (ago): day(s) Associated symptoms: Reports headache(s); Deny chest pain, confusion, dyspnea, malaise, nausea, rash, palpitations, syncope or vomiting Review of Systems Const: Denies: fever(s), chills, body aches, fatigue or malaise Eyes: Reports: change in vision and blurry vision; Denies: blind spots, photophobia, eye discomfort, eye discharge, floaters or seeing flashes ENMT: Denies: odynophagia Card: Denies: chest pain, palpitations, irregular heart rhythm, edema, swelling of feet/ankles, lightheadedness, syncope, pre-syncope, dyspnea on exertion, orthopnea or leg pain with exertion Resp: Denies: dyspnea, productive cough or chest congestion GI: Denies: nausea or vomiting : Denies: flank pain, difficulty voiding, dysuria, urinary frequency, urinary urgency, urinary hesitancy or hematuria Musc: Denies: neck pain, back pain, extremity pain or joint pain Skin/Breast: Denies: rash Neuro: Reports: headache(s); Denies: numbness in extremities, weakness in extremities, sensory changes, lack of coordination, difficulty walking, frequent falls, dizziness, vertigo, confusion, Slurred speech present, difficulty communicating thoughts or seizure- like activity PFSH ED PFSH: Medical History Colon polyp Essential hypertension Fracture of neural arch Gastroesophageal reflux disease Kidney cysts Liver mass Surgical History History of History of cholecystectomy History of colonoscopy with polypectomy (~02/2020) History of esophagogastroduodenoscopy (EGD) (~02/2020) Family History Other Cancer Social History Smoking and tobacco status: never smoked Alcohol intake: never Household members: family Marital status: Single Current occupational status: employed Current occupation: Works at a [employer] History of recent travel: No Physical Exam Const: COMMON NORMALS: no acute distress, patient oriented x3, no limitations, alert and well nourished NUTRITIONAL APPEARANCE: obese ORIENTATION/CONSCIOUSNESS: Yes awake, Yes oriented to person, Yes oriented to place and Yes oriented to time HENMT: COMMON NORMALS: normocephalic and atraumatic HEAD & SCALP: normocephalic and atraumatic Eye: COMMON NORMALS: Equal, round and reactive pupils present and EOMs intact bilaterally GENERAL EYE: appearance normal, both eyes and all related structures and normal light reflex VISUAL MORAN: No peripheral vision loss PUPIL: Yes Equal, round and reactive pupils present DIRECT OPHTHALMOSCOPY: Yes normal light reflex Resp: COMMON NORMALS: normal respiratory effort and clear to auscultation bilaterally AUSCULTATION: clear to auscultation bilaterally Cardio: COMMON NORMALS: regular rate and regular rhythm RATE: regular rate RHYTHM: regular rhythm Neuro: ARABELLA COMA SCALE: document GCS findings [place] coma scale eye opening: Spontaneous Arabella coma scale verbal response: Orientated Arabella coma scale motor response: Obey commands Arabella coma scale total score: 15 COMMON NORMALS: patient oriented x3, CN's II-XII intact bilaterally, moves all extremities, no focal motor deficits, no sensory deficits noted and gait normal SENSORIUM/ORIENTATION: Yes alert, Yes oriented to person, Yes oriented to place and Yes oriented to time Skin: COMMON NORMALS: no rashes or lesions noted GENERAL SKIN EXAM: no rashes or lesions noted Course Vital Signs: Vital signs: Vital Signs Temperature 97.3 F L 07/09/20 08:30 Pulse Rate 66 07/09/20 09:34 Respiratory Rate 18 07/09/20 09:34 Blood Pressure 169/64 07/09/20 09:34 Pulse Oximetry 97 07/09/20 09:34 MDM - General Adult MDM Narrative: Medical decision making narrative: Patient at this time has no evidence of end organ damage. She reports her headache and visual changes have subsided. Recommend she start taking her amlodipine daily as prescribed and keep blood pressure log to discuss with primary care next week so they can adjust BP meds accordingly. Return to ED precautions given. Lab Data: Labs: Lab Results 07/09/20 07/09/20 07/09/20 Range/Units 08:55 08:55 08:57 WBC 6.3 (4.0-10.0) 10^3/ uL RBC 4.54 (4.1-5.3) 10^6/u L Hgb 13.8 (11.5-15.3) g/dL Hct 42.6 (37.0-47.0) % MCV 93.8 (81-99) fL MCH 30.4 (28.0-34.0) pg MCHC 32.4 (30.0-36.0) g/dL RDW 12.0 L (12.1-15.1) % Plt Count 240 (130-400) 10^3/c mm MPV 9.5 (7.4-10.4) fL Neut % (Auto) 67.8 % Lymph % (Auto) 20.1 % Taylor % (Auto) 9.0 % Eos % (Auto) 1.7 % Baso % (Auto) 1.1 % Neut # (Auto) 4.28 (1.8-7.7) 10^3/u L Lymph # (Auto) 1.3 (0.8-4.8) 10^3/u L Taylor # (Auto) 0.6 (0.2-0.9) 10^3/u L Eos # (Auto) 0.1 (0.0-0.8) 10^3/u L Baso # (Auto) 0.1 (0.0-0.1) 10^3/u L Nucleated RBC % (a uto) 0 % Nucleated RBCs # 0.0 /100WBC Sodium 140 (136-145) mmol/L Potassium 4.1 (3.5-5.1) mmol/L Chloride 102 (98-107) mmol/L Carbon Dioxide 31 H (22-29) mmol/L Anion Gap 11.1 (5-19) BUN 16 (6-20) mg/dL Creatinine 0.7 (0.5-0.9) mg/dL GFR Calculation 85.9 L (90-130) mL/min Glucose 97 (65-115) mg/dL Calculated Osmolal ity 291 (285-295) mOsm/k g Calcium 9.3 (8.5-10.5) mg/dL Total Bilirubin 0.4 (0.15-1.2) mg/dL AST 13 (0-32) U/L ALT 12 (0-33) U/L Alkaline Phosphata se 92 (35-105) IU/L Total Protein 7.1 (6.6-8.7) g/dL Albumin 4.0 (3.5-5.2) g/dL Globulin 3.1 (1.3-4.6) g/dL Urine Color Yellow (Yellow) Urine Appearance Hazy A (CLEAR) Urine pH 7 (5-7) Ur Specific Gravit y 1.015 (1.005-1.030) Urine Protein Neg (Negative) Urine Glucose (UA) Norm (Normal) Urine Ketones Negative (Negative) Urine Blood Neg (Negative) Urine Nitrate Negative (Negative) Urine Bilirubin Neg (Negative) Urine Urobilinogen Norm (Negative) mg/dL Ur Leukocyte Yudi ase Negative (Negative) Urine RBC None (0-2) /hpf Urine WBC None (0-5) /hpf Ur Squamous Epith Cells 0-4 H (0-5) /hpf Amorphous Sediment 1+ /hpf Urine Bacteria Trace (NONE) /hpf Imaging Data^: CT Head: Radiologist's impression: [address] [address] [address] Scan Report Signed Patient: Ailyn Sagastume #: [id number] : 2Acct#:[id number] Age/Sex: 59 / FADM Date: 07/09/20 Loc: ERRoom/Bed: Attending Dr: Ordering Provider/Ordering MD: Maria Del Rosario Proctor Date of Service: 07/09/20 Procedure(s): CT head wo con* [id number] Accession Number(s): [id number] Report Number: [id number] WS: [id number] CT HEAD TECHNIQUE: Noncontrast CT of the head obtained from the skullbase to the vertex. CLINICAL INFORMATION: HTN, MILLS, visual changes COMPARISON: CT November 28, 2019 DLP: 786.[address] scans at [facility] use at least one of these dose optimization techniques: automated exposure control; mA and/or kV adjustment per patient size (includes targeted exams where dose is matched to clinical indication); or iterative reconstruction. FINDINGS: No evidence of intracranial hemorrhage or mass effect. Ventricular system and basal cisterns are patent. No extra-axial fluid collections. No evidence of mass or mass effect. Normal andrade-white differentiation. Paranasal sinuses and mastoid air cells are well aerated. .Normal visualized soft tissues. CT/CT head wo con* [id number] IMPRESSION: 1. No evidence of intracranial hemorrhage or mass effect. 2. Normal andrade-white differentiation. 3. No acute intracranial findings. Dictated By:Mp Albert MD Signed By:Mp Albert MDSigned Date/Time:07/09/20939 DD/ 7 Discharge Plan Discharge Patient Disposition: Home Clinical Impression: Hypertension Qualifiers: Hypertension type: essential hypertension Qualified Code(s): I10 - Essential (primary) hypertension Condition: Stable Prescriptions: No Action amlodipine 5 mg Tablet 5 mg PO DAILY RF: 0 multivitamin Tablet 1 tab PO DAILY@06 RF: 0 pantoprazole 40 mg tablet,delayed release (DR/EC) 40 mg PO DAILY@06 RF: 0 ferrous gluconate 324 mg (37.5 mg iron) tablet 324 mg PO DAILY@06 RF: 0 Discharge Orders: Discharge ED (Routine); Ordered 07/09/20 Ordered By: Maria Del Rosario Proctor Referrals: Argelia Grimes FNP-C [Primary Care Provider] - Patient Instructions: Hypertension, Hypertension (ED) Activity Restrictions/Additional Instructions: As discussed please keep a blood pressure log over the next week and follow-up with primary care. Begin taking your amlodipine daily as prescribed. You may return to the emergency department for severe headache, chest pain, shortness of breath, difficulty breathing, or any other concerns you may have. Coding Level of Care Code ED Pin Machine Tender for Chg Fwd Exam Detailed
[2020-07-09 08:41] VITALS: BP 193/76; PULSE 73; RESP 18; O2SAT 100
--- NOTE | 2020-07-09 08:45 | CT_ITS ---
WS: [id number] CT HEAD TECHNIQUE: Noncontrast CT of the head obtained from the skullbase to the vertex. CLINICAL INFORMATION: HTN, MILLS, visual changes COMPARISON: CT November 28, 2019 DLP: 786.[address] scans at [facility] use at least one of these dose optimization techniques: automat ed exposure control; mA and/or kV adjustment per patient size (includes targeted exams where dose is matched to clinical indication); or iterative reconstruction. FINDINGS: No evidence of intracranial hemorrhage or mass effect. Ventricular system and basal cisterns are valdez nt. No extra-axial fluid collections. No evidence of mass or mass effect. Normal andrade-white different iation. Paranasal sinuses and mastoid air cells are well aerated. .Normal visualized soft tissues. CT/CT head wo con* [id number] IMPRESSION: 1. No evidence of intracranial hemorrhage or mass effect. 2. Normal andrade-white differentiation. 3. No acute intracranial findings.
[2020-07-09] MEDS: metoprolol tartrate 25 mg Tablet PO (09:04)
[2020-07-09 09:21] LABS: Basophils # 0.1 10^3/uL (0.0-0.1); Basophils % 1.1 %; Eosinophils # 0.1 10^3/uL (0.0-0.8); Eosinophils % 1.7 %; Hematocrit 42.6 % (37.0-47.0); Hemoglobin 13.8 g/dL (11.5-15.3); Lymphocytes # 1.3 10^3/uL (0.8-4.8); Lymphocytes % 20.1 %; Mean Corpuscular HGB Conc 32.4 g/dL (30.0-36.0); Mean Corpuscular Hemoglobin 30.4 pg (28.0-34.0); Mean Corpuscular Volume 93.8 fL (81-99); Mean Platelet Volume 9.5 fL (7.4-10.4); Monocytes # 0.6 10^3/uL (0.2-0.9); Neutrophils # 4.28 10^3/uL (1.8-7.7); Neutrophils % 67.8 %; Nucleated Red Blood Cells % 0 %; Platelet Count 240 10^3/cmm (130-400); Red Blood Count 4.54 10^6/uL (4.1-5.3); White Blood Count 6.3 10^3/uL (4.0-10.0)
[2020-07-09 09:23] LABS: Alanine Aminotransferase 12 U/L (0-33); Alkaline Phosphatase 92 IU/L (35-105); Anion Gap 11.1 (5-19); Aspartate Amino Transferase 13 U/L (0-32); Blood Urea Nitrogen 16 mg/dL (6-20); Calcium 9.3 mg/dL (8.5-10.5); Carbon Dioxide 31 mmol/L (22-29); Chloride 102 mmol/L (98-107); Globulin 3.1 g/dL (1.3-4.6); Glomerular Filtration Rate 85.9 mL/min (90-130); Glucose 97 mg/dL (65-115); Osmolality Calculated 291 mOsm/kg (285-295); Potassium 4.1 mmol/L (3.5-5.1); Sodium 140 mmol/L (136-145); Total Bilirubin 0.4 mg/dL (0.15-1.2); Total Protein 7.1 g/dL (6.6-8.7)
[2020-07-09 09:34] VITALS: BP 169/64; PULSE 66; RESP 18; O2SAT 97
[2020-07-09 10:09] LABS: Add Urine Microscopic? YES; Bilirubin Urine Neg (Negative); Blood Urine Neg (Negative); Glucose Urine UA Norm (Normal); Ketones Urine Negative (Negative); Leukocyte Esterase Urine Negative (Negative); Nitrate Urine Negative (Negative); Protein Urine Neg (Negative); Specific Gravity, Urine 1.015 (1.005-1.030); Urine Appearance Hazy (CLEAR); Urine Color Yellow (Yellow); Urobilinogen Urine Norm (Negative); pH Urine 7 (5-7)
[2020-07-09 10:21] LABS: Add Urine Culture? No; Amorphous Sediment Urine 1+ /hpf; Bacteria Urine TRACE /hpf; Squamous Epithelial Cell Urine 0-4 /hpf (0-5)
[2020-07-09 10:38] VITALS: BP 164/80; PULSE 50; RESP 14; O2SAT 100
== END 2020-07-09 10:17 | disposition home or self-care (01) ==
PROVIDERS: Emergency Provider Physician Assistant; PCP Nurse Practitioner Family
DX: I10 Essential (primary) hypertension (principal)
CPT/HCPCS: 12345; 70450; 80053; 81001; 85025; 99281; 99283

== ENCOUNTER → 2020-10-20 14:28 | Outpatient (BNVA) | payer OTHER, SELFPAY | PROVIDERS: PCP Nurse Practitioner Family; Visit Provider Nurse Practitioner | DX: I10 Essential (primary) hypertension (principal); K21.9 Gastro-esophageal reflux disease without esophagitis | CPT/HCPCS: 80053; 80061; 85025 ==

== ENCOUNTER → 2020-11-01 17:02 | Outpatient (BNVA) | payer OTHER, SELFPAY | PROVIDERS: PCP Nurse Practitioner Family; Visit Provider Nurse Practitioner | DX: L98.9 Disorder of the skin and subcutaneous tissue, unspecified (principal) | CPT/HCPCS: 88305 ==

== ENCOUNTER → 2021-03-09 15:11 | Outpatient (BNVA) | payer OTHER, SELFPAY | PROVIDERS: PCP Nurse Practitioner Family; Visit Provider Nurse Practitioner Family | DX: I10 Essential (primary) hypertension (principal); K21.9 Gastro-esophageal reflux disease without esophagitis; E78.2 Mixed hyperlipidemia; E66.01 Morbid (severe) obesity due to excess calories | CPT/HCPCS: 80053; 80061; 84443; 85025 ==

== ENCOUNTER → 2021-12-06 10:06 | Outpatient (BNVA) | payer OTHER, SELFPAY | PROVIDERS: PCP Nurse Practitioner Family; Visit Provider Nurse Practitioner Family | DX: I10 Essential (primary) hypertension (principal); K21.9 Gastro-esophageal reflux disease without esophagitis; E78.2 Mixed hyperlipidemia; R73.9 Hyperglycemia, unspecified; E66.01 Morbid (severe) obesity due to excess calories | CPT/HCPCS: 80053; 80061; 83036; 84443; 85025 ==

== ENCOUNTER → 2022-08-30 13:35 | Outpatient (BNVA) | payer OTHER, SELFPAY | PROVIDERS: PCP Nurse Practitioner Family; Visit Provider Nurse Practitioner Family | DX: I10 Essential (primary) hypertension (principal) | CPT/HCPCS: 80053; 80061; 84443; 85025 ==

== ENCOUNTER → 2023-02-16 09:34 | Outpatient (BNVA) | payer OTHER, SELFPAY | PROVIDERS: PCP Nurse Practitioner Family; Visit Provider Nurse Practitioner Family | DX: I10 Essential (primary) hypertension; R73.9 Hyperglycemia, unspecified | CPT/HCPCS: 80053; 80061; 83036; 84443; 85025 ==

== ENCOUNTER → 2023-09-11 09:27 | Outpatient (BNVA) | payer OTHER, SELFPAY | PROVIDERS: PCP Nurse Practitioner Family; Visit Provider Nurse Practitioner Family | DX: I10 Essential (primary) hypertension (principal); K21.9 Gastro-esophageal reflux disease without esophagitis; E78.2 Mixed hyperlipidemia | CPT/HCPCS: 80053; 80061; 84443; 85025 ==

== ENCOUNTER → 2024-04-17 15:00 | Outpatient (BNVA) | payer OTHER, SELFPAY | PROVIDERS: PCP Nurse Practitioner Family; Visit Provider Nurse Practitioner | DX: I10 Essential (primary) hypertension (principal); E78.2 Mixed hyperlipidemia; E04.1 Nontoxic single thyroid nodule | CPT/HCPCS: 80053; 80061; 84443; 85025; 86800 ==

== ENCOUNTER → 2024-04-28 15:55 | Outpatient (BNVA) | payer OTHER, SELFPAY | PROVIDERS: PCP Nurse Practitioner; Visit Provider Nurse Practitioner | DX: D64.9 Anemia, unspecified (principal) | CPT/HCPCS: 83540 ==

== ENCOUNTER → 2024-05-01 15:58 | Outpatient (BNVA) | payer OTHER, SELFPAY | PROVIDERS: PCP Nurse Practitioner; Visit Provider Nurse Practitioner | DX: D64.9 Anemia, unspecified (principal) | CPT/HCPCS: 82270 ==

== ENCOUNTER 2024-05-14 10:39 | Outpatient (CLI) | payer OTHER, SELFPAY ==
--- NOTE | 2024-05-14 10:45 | US_ITS ---
WS: [id number] THYROID ULTRASOUND HISTORY: E04.1 - Nontoxic single thyroid nodule COMPARISON: 05/31/2020 Right lobe: 1.4 cm x 1.7 cm x 3.4 cm (w x ap x l). Volume: 3.8 cm3. Normal size RIGHT thyroid. Reidentified is the isoechoic nodule in the lower pole that was previously described. This nodule is labeled mid thyroid on today's examination but does appear to be mid to lo wer pole. Nodule measures 1.1 x 0.9 x 1.3 cm without significant increase in size. No additional nodu les. Left lobe: 1.2 cm x 1.1 cm x 3.4 cm (w x ap x l). Volume: 2.2 cm3. Normal size and echotexture. No significant or dominant nodules are present. Isthmus: 0.4 cm. US/US thyroid [id number] IMPRESSION: 1. Stable RIGHT thyroid nodule since 05/31/2020. Nodule is not increasing in s ize and is nearly isoechoic to the adjacent lobe. Benign features. TI-RADS crit eria recommends additional ultrasound follow-up at 5 years based upon the 05/31 exam to document long-term stability. 2. Negative LEFT thyroid.
== END 2024-05-14 10:40 | disposition home or self-care (01) ==
LOC: RAD 10:40
PROVIDERS: PCP Nurse Practitioner Family; Visit Provider Nurse Practitioner
DX: E04.1 Nontoxic single thyroid nodule (principal)
CPT/HCPCS: 76536

== ENCOUNTER 2024-05-20 10:19 | Outpatient (CLI) | payer OTHER, SELFPAY ==
--- NOTE | 2024-05-20 10:20 | MM_ITS ---
WS: [id number] BILATERAL 3D TOMOSYNTHESIS DIGITAL SCREENING MAMMOGRAPHY WITH CAD CLINICAL INFORMATION: Z12.31 - Encounter for screening mammogram for malignant ... HISTORY: Screening mammogram. No current complaints. COMPARISON: 2009 TECHNIQUE: Bilateral CC and MLO views. FINDINGS: The breasts are composed of heterogeneous fibroglandular density tissue, which can limit the detectio n of small underlying mass lesions. No suspicious mass, asymmetry, calcifications, or architectural d istortion. No evidence of malignancy. Incidental punctate and lucent centered calcifications. MM/MM [facility] tomosynthesis [id number] IMPRESSION: DENSITY: The breasts are heterogeneously dense, which may obscure small masses. BI-RADS: 2 - Benign FOLLOW UP: 1 Year Follow-up Recommend return to annual screening mammography.
== END 2024-05-20 10:20 | disposition home or self-care (01) ==
LOC: MOBLMAM 10:23
PROVIDERS: PCP Nurse Practitioner; Visit Provider Nurse Practitioner
DX: Z12.31 Encounter for screening mammogram for malignant neoplasm of breast (principal); R92.333 Mammographic heterogeneous density, bilateral breasts; R92.1 Mammographic calcification found on diagnostic imaging of breast
CPT/HCPCS: 77063; 77067

== ENCOUNTER → 2024-08-27 13:53 | Outpatient (BNVA) | payer OTHER, SELFPAY | PROVIDERS: PCP Nurse Practitioner; Visit Provider Nurse Practitioner | DX: I10 Essential (primary) hypertension (principal); E78.2 Mixed hyperlipidemia; E55.9 Vitamin D deficiency, unspecified; E61.1 Iron deficiency | CPT/HCPCS: 80053; 80061; 82306; 83540; 84443; 85025 ==

== ENCOUNTER 2024-08-29 10:14 | Outpatient (CLI) | payer OTHER, SELFPAY ==
--- NOTE | 2024-08-29 10:42 | XR_ITS ---
WS: [email or web address] Cervical spine, 3 views, 08/29/2024 Clinical Data: M25.50 - Pain in unspecified joint Comparison: Cervical spine, 03/17/2007 Findings: No compression fractures are seen. The disc heights are normal. There is no prevertebral soft tissue swelling. The odontoid is unremarkable. The soft tissues of the neck and the lung apices are normal. XR/XR cervical spine 3V* [id number] Impression: Negative cervical spine.
--- NOTE | 2024-08-29 10:42 | XR_ITS ---
WS: [id number] Right shoulder, 3 views, 08/29/2024 Clinical Data: M25.50 - Pain in unspecified joint Comparison: None. Findings: No fractures or dislocations are seen. The AC joint is normal. The adjacent right clavicle, right scapula and ribs are normal. The soft tissues are unremarkable. XR/XR shoulder RT min 2V* [id number] Impression: Negative right shoulder.
--- NOTE | 2024-08-29 10:42 | XR_ITS ---
WS: [id number] Lumbar spine, AP and lateral views, 08/29/2024 Clinical Data: M25.50 - Pain in unspecified joint Comparison: None. Findings: No compression fractures are seen. There is degenerative disc narrowing at L4-L5 and L5-S1. There is an anterior subluxation of L4 on L5 of 0.3 cm. There are small osteophytes L1-L5. No disc space narrowing is seen. The transverse processes and SI joints are normal. There are cholecystectomy clips in the right upper quadrant. XR/XR lumbar spine 2-3V* [id number] Impression: 1. Degenerative disc narrowing at L4-L5 and L5-S1. 2. Small anterior subluxation of L4 and L5 of 0.3 cm. 3. Small osteophytes L1-L5.
--- NOTE | 2024-08-29 10:42 | XR_ITS ---
WS: [email or web address] Right hip, 2 views, 08/29/2024 Clinical Data: M25.50 - Pain in unspecified joint Comparison: AP pelvis, 03/17/2007 Findings: No fractures or dislocations are seen. The right hip shows no erosion, sclerosis, narrowing, cyst formation or fragmentation of the right femoral head. The soft tissues are not remarkable. The adjacent pelvis is normal. XR/XR hip RT 2-3V wo/w pel* [id number] Impression: Negative right hip.
== END 2024-08-29 10:15 | disposition home or self-care (01) ==
PROVIDERS: PCP Nurse Practitioner; Visit Provider Nurse Practitioner
DX: M25.50 Pain in unspecified joint (principal); M51.369 Other intervertebral disc degeneration, lumbar region without mention of lumbar back pain or lower extremity pain; M51.379 Other intervertebral disc degeneration, lumbosacral region without mention of lumbar back pain or lower extremity pain; R93.7 Abnormal findings on diagnostic imaging of other parts of musculoskeletal system; M25.78 Osteophyte, vertebrae; Z90.49 Acquired absence of other specified parts of digestive tract
CPT/HCPCS: 72040; 72100; 73030; 73502

== ENCOUNTER → 2025-05-19 13:46 | Outpatient (BNVA) | payer OTHER, SELFPAY | PROVIDERS: PCP Nurse Practitioner; Visit Provider Nurse Practitioner | DX: I10 Essential (primary) hypertension (principal); E04.1 Nontoxic single thyroid nodule | CPT/HCPCS: 80053; 80061; 84443 ==